=== PATIENT | female | born 1955 | race African-American/Black ===

== ENCOUNTER 2020-09-19 08:32 | Inpatient (IN) | payer MEDICAID ==
[~2020-09-19] VITALS: Ht 167.6 cm; Wt 116.1 kg
[~2020-09-19 08:32] MED LIST: ASPI-1406 PO; ATOR40TA70 PO; CA C1TAB92 PO; LISI40TA4 PO; METF-416 PO
[2020-09-19] MEDS ORDERED: PIPERACILLIN/TAZ 3.375G PREMIX 50 ML IV ONE (08:45)
[2020-09-19] MEDS ORDERED: VANCOMYCIN 1 G PREMIX 200 ML IV ONE (08:45)
[2020-09-19] MEDS ORDERED: AZITHROMYCIN 500 MG in DEXT 5% WATER 250 ML IV ONE (08:45)
[2020-09-19] MEDS ORDERED: MORPHINE SULFATE 4 MG/ML CPJ (NOT FOR IM USE) IV ONE (09:30)
[2020-09-19] MEDS ORDERED: FUROSEMIDE 100MG/10ML VIAL IVP ONE (09:30)
[2020-09-19 09:54] LABS: CHLORIDE 101 mEq/L (98-107)
[2020-09-19 09:56] LABS: BASOPHILS % 0.9 % (0.0-2.0); HEMATOCRIT. 44.3 % (36.0-48.0); HEMOGLOBIN. 14.5 g/dL (12.0-16.0); LYMPHOCYTES % 8.7 % (20.0-50.0); MEAN CORPUSCULAR HEMOGLOBIN 26.8 pg (28.0-32.0); MEAN CORPUSCULAR VOLUME 81.7 fL (81.0-99.0); MEAN PLATELET VOLUME 8.7 fl (7.4-10.4); MONOCYTES % 7.7 % (2.0-8.0); NEUTROPHILS % 82.7 % (40.0-76.0); PLATELET 178 x1000/uL (130-400); RED BLOOD CELL COUNT 5.43 mill/uL (4.2-5.4)
[2020-09-19] MEDS ORDERED: LORAZEPAM 2MG/ML CPJ IV ONE (10:15)
[2020-09-19] MEDS ORDERED: CLONIDINE 0.1MG TABLET PO PRN (10:30)
[2020-09-19] MEDS ORDERED: HYDROCODONE/ACETAMINOPHEN 5/325MG TABLET PO PRN (10:30)
[2020-09-19] MEDS ORDERED: LORAZEPAM 0.5MG TABLET PO PRN (10:30)
[2020-09-19] MEDS ORDERED: ACETAMINOPHEN 325MG TABLET PO PRN ×2 (10:30)
[2020-09-19] MEDS ORDERED: DOCUSATE SODIUM 100MG CAPSULE PO PRN (10:30)
[2020-09-19] MEDS: DEXAMETHASONE 10 MG/ML VIAL IV SCH (10:30)
[2020-09-19] MEDS ORDERED: ONDANSETRON HCL 4MG/2ML INJ IV PRN (10:30)
[2020-09-19] MEDS: ENOXAPARIN 40MG/0.4ML SYR SUBCUT SCH (11:00)
[2020-09-19 11:35] LABS: PHOSPHORUS 3.2 mg/dL (2.5-4.9)
[2020-09-19] MEDS: CEFEPIME 2,000 MG in DEXT 5% WATER 100 ML IV SCH (12:00)
[2020-09-19 12:20] LABS: BG BASE EXCESS 2.8 mmol/L (-2.0-2.0); BG CARBOXYHEMOGLOBIN 0.3 % (0.5-1.5); BG DEOXYHEMOGLOBIN 6.2 % (0.0-5.0); BG FRACTION INSPIRED OXYGEN 100; BG HCO3 ACT 26.2 mmol/L (22.0-26.0); BG METHEMOGLOBIN 0.1 % (0.0-1.5); BG OXYGEN SATURATION 93.8 % (92.0-98.5); BG OXYHEMOGLOBIN 93.4 % (94.0-97.0); BG PCO2 36.5 mmHg (35.0-45.0); BG PH 7.474 (7.350-7.450); BG SAMPLE SITE RIGHT BRACHIAL; BG TOTAL HEMOGLOBIN 14.9 g/dL (12.0-18.0); BG VENT MODE MASK - NRB
[2020-09-19] MEDS ORDERED: DEXTROSE 50% WATER 50ML SYRINGE IV PRN (13:45)
[2020-09-19] MEDS: BLOOD SUGAR DIAGNOSTIC STRIP TEST SCH ×2 (17:32→22:30)
[2020-09-19] MEDS: INSULIN LISPRO 100 UNITS/ML SUBCUT SCH ×2 (18:20→22:39)
[2020-09-20] MEDS: ERGOCALCIFEROL 50000UNITS CAPSULE PO SCH (00:19)
[2020-09-20 05:46] LABS: BASOPHILS % 0.3 % (0.0-2.0); HEMATOCRIT. 41.5 % (36.0-48.0); HEMOGLOBIN. 13.5 g/dL (12.0-16.0); MEAN CORPUSCULAR HEMOGLOBIN 26.6 pg (28.0-32.0); MEAN CORPUSCULAR VOLUME 81.9 fL (81.0-99.0); MEAN PLATELET VOLUME 8.3 fl (7.4-10.4); MONOCYTES % 10.4 % (2.0-8.0); NEUTROPHILS % 80.3 % (40.0-76.0); PLATELET 152 x1000/uL (130-400); RED BLOOD CELL COUNT 5.06 mill/uL (4.2-5.4); RED CELL DISTRIBUTION WIDTH 14.6 % (11.6-14.6)
[2020-09-20] MEDS: BLOOD SUGAR DIAGNOSTIC STRIP TEST SCH ×4 (06:49→22:09)
[2020-09-20] MEDS: INSULIN LISPRO 100 UNITS/ML SUBCUT SCH ×4 (07:00→22:09)
[2020-09-20] MEDS: ASPIRIN 81MG EC TABLET PO SCH (08:16)
[2020-09-20] MEDS: DEXAMETHASONE 10 MG/ML VIAL IV SCH (08:16)
[2020-09-20] MEDS: ASCORBIC ACID 500 MG TABLET PO SCH ×2 (08:17→22:09)
[2020-09-20] MEDS: ZINC SULFATE 220 MG ( 50 ) CAPSULE PO SCH (09:00)
[2020-09-20] MEDS: ENOXAPARIN 40MG/0.4ML SYR SUBCUT SCH (10:21)
[2020-09-20] MEDS: CEFEPIME 2,000 MG in DEXT 5% WATER 100 ML IV SCH (12:08)
[2020-09-20 13:24] LABS: BG BASE EXCESS 1.8 mmol/L (-2.0-2.0); BG CARBOXYHEMOGLOBIN 0.5 % (0.5-1.5); BG DEOXYHEMOGLOBIN 5.3 % (0.0-5.0); BG FRACTION INSPIRED OXYGEN 100; BG HCO3 ACT 25.9 mmol/L (22.0-26.0); BG METHEMOGLOBIN 0.2 % (0.0-1.5); BG OXYGEN SATURATION 94.7 % (92.0-98.5); BG PCO2 38.6 mmHg (35.0-45.0); BG PH 7.444 (7.350-7.450); BG PO2 74.7 mmHg (75.0-100.0); BG SAMPLE SITE RIGHT RADIAL; BG TOTAL HEMOGLOBIN 14.2 g/dL (12.0-18.0); BG TOTAL RESPIRATORY RATE 31 b/min; BG VENT MODE MASK - CPAP
[2020-09-20] MEDS: SODIUM CHLORIDE 0.9% 1,000 ML IV SCH (15:23)
[2020-09-20] MEDS: FAMOTIDINE 20MG TABLET PO SCH (22:09)
[2020-09-21] MEDS: SODIUM CHLORIDE 0.9% 1,000 ML IV SCH ×2 (05:12→18:00)
[2020-09-21 06:33] LABS: BASOPHILS % 0.3 % (0.0-2.0); HEMATOCRIT. 39.4 % (36.0-48.0); LYMPHOCYTES % 8.3 % (20.0-50.0); MEAN CORPUSCULAR VOLUME 82.2 fL (81.0-99.0); MEAN PLATELET VOLUME 9.1 fl (7.4-10.4); NEUTROPHILS % 81.4 % (40.0-76.0); PLATELET 145 x1000/uL (130-400); RED BLOOD CELL COUNT 4.79 mill/uL (4.2-5.4); RED CELL DISTRIBUTION WIDTH 14.3 % (11.6-14.6)
[2020-09-21] MEDS: BLOOD SUGAR DIAGNOSTIC STRIP TEST SCH ×4 (06:41→21:00)
[2020-09-21] MEDS: INSULIN LISPRO 100 UNITS/ML SUBCUT SCH ×4 (07:10→21:00)
[2020-09-21] MEDS: ASCORBIC ACID 500 MG TABLET PO SCH ×2 (08:03→21:21)
[2020-09-21] MEDS: ZINC SULFATE 220 MG ( 50 ) CAPSULE PO SCH (08:03)
[2020-09-21] MEDS: DEXAMETHASONE 10 MG/ML VIAL IV SCH (08:03)
[2020-09-21] MEDS: ASPIRIN 81MG EC TABLET PO SCH (08:03)
[2020-09-21 08:24] LABS: BG BASE EXCESS 0.9 mmol/L (-2.0-2.0); BG CARBOXYHEMOGLOBIN 0.4 % (0.5-1.5); BG DEOXYHEMOGLOBIN 6.6 % (0.0-5.0); BG HCO3 ACT 25.3 mmol/L (22.0-26.0); BG METHEMOGLOBIN 0.2 % (0.0-1.5); BG OXYGEN SATURATION 93.4 % (92.0-98.5); BG OXYHEMOGLOBIN 92.8 % (94.0-97.0); BG PCO2 39.8 mmHg (35.0-45.0); BG PH 7.421 (7.350-7.450); BG PO2 70.2 mmHg (75.0-100.0); BG SAMPLE SITE RIGHT RADIAL; BG TOTAL HEMOGLOBIN 13.6 g/dL (12.0-18.0); BG VENT MODE MASK - CPAP
[2020-09-21] MEDS: ENOXAPARIN 40MG/0.4ML SYR SUBCUT SCH (12:41)
[2020-09-21] MEDS: CEFEPIME 2,000 MG in DEXT 5% WATER 100 ML IV SCH (13:19)
[2020-09-21] MEDS: GUAIFENESIN-DM 200MG-20MG/10ML UDC PO PRN (18:22)
[2020-09-21] MEDS: FAMOTIDINE 20MG TABLET PO SCH (21:21)
[2020-09-22] MEDS: BLOOD SUGAR DIAGNOSTIC STRIP TEST SCH ×4 (06:39→21:00)
[2020-09-22] MEDS: INSULIN LISPRO 100 UNITS/ML SUBCUT SCH ×4 (07:13→21:00)
[2020-09-22] MEDS: SODIUM CHLORIDE 0.9% 1,000 ML IV SCH (07:15)
[2020-09-22] MEDS: ZINC SULFATE 220 MG ( 50 ) CAPSULE PO SCH (09:00)
[2020-09-22] MEDS: DEXAMETHASONE 10 MG/ML VIAL IV SCH (09:00)
[2020-09-22] MEDS: ASCORBIC ACID 500 MG TABLET PO SCH ×2 (09:00→20:44)
[2020-09-22] MEDS: ASPIRIN 81MG EC TABLET PO SCH (09:00)
[2020-09-22 09:02] LABS: BASOPHILS % 0.4 % (0.0-2.0); EOSINOPHILS % 0.5 % (0.0-5.0); HEMATOCRIT. 40.9 % (36.0-48.0); HEMOGLOBIN. 13.3 g/dL (12.0-16.0); LYMPHOCYTES % 7.1 % (20.0-50.0); MEAN CORPUSCULAR HEMOGLOBIN 26.7 pg (28.0-32.0); MEAN PLATELET VOLUME 8.7 fl (7.4-10.4); MONOCYTES % 3.4 % (2.0-8.0); NEUTROPHILS % 88.6 % (40.0-76.0); PLATELET 149 x1000/uL (130-400); RED BLOOD CELL COUNT 4.99 mill/uL (4.2-5.4); RED CELL DISTRIBUTION WIDTH 14.5 % (11.6-14.6)
[2020-09-22 09:26] LABS: CHLORIDE 108 mEq/L (98-107)
[2020-09-22] MEDS: ENOXAPARIN 40MG/0.4ML SYR SUBCUT SCH (11:00)
[2020-09-22] MEDS: CEFEPIME 2,000 MG in DEXT 5% WATER 100 ML IV SCH (12:00)
[2020-09-22 16:00] VITALS: BP 121/74
[2020-09-22 16:28] VITALS: BP 121/65
[2020-09-22 20:00] VITALS: BP 95/64
[2020-09-22] MEDS: FAMOTIDINE 20MG TABLET PO SCH (20:44)
[2020-09-23] VITALS: BP 134/68
[2020-09-23 04:00] VITALS: BP 137/76
[2020-09-23] MEDS: SODIUM CHLORIDE 0.9% 1,000 ML IV SCH ×2 (05:14→13:26)
[2020-09-23] MEDS: BLOOD SUGAR DIAGNOSTIC STRIP TEST SCH ×4 (06:40→21:29)
[2020-09-23 06:53] LABS: HEMATOCRIT. 41.1 % (36.0-48.0); HEMOGLOBIN. 13.3 g/dL (12.0-16.0); MEAN CORPUSCULAR HEMOGLOBIN 26.8 pg (28.0-32.0); MEAN CORPUSCULAR VOLUME 82.8 fL (81.0-99.0); MEAN PLATELET VOLUME 8.9 fl (7.4-10.4); PLATELET 117 x1000/uL (130-400); RED BLOOD CELL COUNT 4.96 mill/uL (4.2-5.4); RED CELL DISTRIBUTION WIDTH 14.5 % (11.6-14.6)
[2020-09-23 06:58] LABS: CHLORIDE 110 mEq/L (98-107)
[2020-09-23] MEDS: INSULIN LISPRO 100 UNITS/ML SUBCUT SCH ×5 (07:10→21:38)
[2020-09-23 08:00] VITALS: BP 135/81
[2020-09-23] MEDS: DEXAMETHASONE 10 MG/ML VIAL IV SCH (08:37)
[2020-09-23] MEDS: ZINC SULFATE 220 MG ( 50 ) CAPSULE PO SCH (09:17)
[2020-09-23] MEDS: ASCORBIC ACID 500 MG TABLET PO SCH ×2 (09:17→21:29)
[2020-09-23] MEDS: ASPIRIN 81MG EC TABLET PO SCH (09:17)
[2020-09-23] MEDS: ENOXAPARIN 40MG/0.4ML SYR SUBCUT SCH (11:35)
[2020-09-23 12:00] VITALS: BP 111/68
[2020-09-23] MEDS: CEFEPIME 2,000 MG in DEXT 5% WATER 100 ML IV SCH (14:35)
[2020-09-23 16:29] LABS: PLATELET ESTIMATE DECREASED
[2020-09-23 20:00] VITALS: BP 151/72
[2020-09-23] MEDS: FAMOTIDINE 20MG TABLET PO SCH (21:29)
[2020-09-24] VITALS: BP 149/80
[2020-09-24 04:00] VITALS: BP 145/70
[2020-09-24] MEDS: BLOOD SUGAR DIAGNOSTIC STRIP TEST SCH ×4 (05:58→20:32)
[2020-09-24 08:00] VITALS: BP 119/75
[2020-09-24] MEDS: ZINC SULFATE 220 MG ( 50 ) CAPSULE PO SCH (09:12)
[2020-09-24] MEDS: ASPIRIN 81MG EC TABLET PO SCH (09:12)
[2020-09-24] MEDS: INSULIN LISPRO 100 UNITS/ML SUBCUT SCH ×4 (09:13→20:33)
[2020-09-24] MEDS: DEXAMETHASONE 10 MG/ML VIAL IV SCH (09:47)
[2020-09-24] MEDS: ASCORBIC ACID 500 MG TABLET PO SCH ×2 (11:30→20:32)
[2020-09-24] MEDS: ENOXAPARIN 40MG/0.4ML SYR SUBCUT SCH (11:30)
[2020-09-24 12:00] VITALS: BP 157/74
[2020-09-24] MEDS: SODIUM CHLORIDE 0.9% 1,000 ML IV SCH ×2 (12:50)
[2020-09-24 13:29] LABS: MEAN CORPUSCULAR HEMOGLOBIN 26.7 pg (28.0-32.0); MEAN CORPUSCULAR VOLUME 82.1 fL (81.0-99.0); MEAN PLATELET VOLUME 8.9 fl (7.4-10.4); PLATELET 87 x1000/uL (130-400); RED BLOOD CELL COUNT 4.51 mill/uL (4.2-5.4); RED CELL DISTRIBUTION WIDTH 14.7 % (11.6-14.6)
[2020-09-24 13:44] LABS: CHLORIDE 113 mEq/L (98-107)
[2020-09-24 14:28] LABS: PLATELET ESTIMATE DECREASED
[2020-09-24 16:00] VITALS: BP 138/75
[2020-09-24] MEDS: BENZONATATE 100MG CAPSULE PO SCH ×2 (17:24→22:57)
[2020-09-24 20:00] VITALS: BP 159/83
[2020-09-24] MEDS: FAMOTIDINE 20MG TABLET PO SCH (20:32)
[2020-09-24] MEDS: ACETAMINOPHEN 650MG/20.3ML UDC PO PRN (23:46)
[2020-09-25] VITALS (68 sets, daily range): BP systolic 63–151; BP diastolic 28–96
[2020-09-25] MEDS: SODIUM CHLORIDE 0.9% 1,000 ML IV SCH ×2 (03:06→15:44)
[2020-09-25] MEDS: BENZONATATE 100MG CAPSULE PO SCH ×3 (05:59→22:00)
[2020-09-25] MEDS: BLOOD SUGAR DIAGNOSTIC STRIP TEST SCH ×3 (05:59→18:24)
[2020-09-25] MEDS: INSULIN LISPRO 100 UNITS/ML SUBCUT SCH ×3 (06:00→18:29)
[2020-09-25] MEDS: PROPOFOL 10MG/ML 100ML 100 ML IV PRN ×2 (07:15→09:41)
[2020-09-25] MEDS ORDERED: FENTANYL CITRATE/PF 2,500 MCG in SODIUM CHLORIDE 0.9% 200 ML IV PRN (07:30)
[2020-09-25] MEDS ORDERED: MIDAZOLAM HCL 100 MG in DEXT 5% WATER 80 ML IV PRN (07:30)
[2020-09-25 07:40] LABS: BASOPHILS % 0.5 % (0.0-2.0); EOSINOPHILS % 1.3 % (0.0-5.0); HEMATOCRIT. 39.1 % (36.0-48.0); HEMOGLOBIN. 12.7 g/dL (12.0-16.0); LYMPHOCYTES % 11.2 % (20.0-50.0); MEAN CORPUSCULAR VOLUME 83.4 fL (81.0-99.0); MEAN PLATELET VOLUME 8.8 fl (7.4-10.4); MONOCYTES % 1.5 % (2.0-8.0); NEUTROPHILS % 85.5 % (40.0-76.0); PLATELET 61 x1000/uL (130-400); RED BLOOD CELL COUNT 4.69 mill/uL (4.2-5.4); RED CELL DISTRIBUTION WIDTH 14.8 % (11.6-14.6)
[2020-09-25] MEDS: FENTANYL CITRATE/PF 2,500 MCG in SODIUM CHLORIDE 0.9% 200 ML IV PRN (08:02)
[2020-09-25 08:10] LABS: CHLORIDE 111 mEq/L (98-107)
[2020-09-25 08:28] LABS: BG BASE EXCESS -4.4 mmol/L (-2.0-2.0); BG CARBOXYHEMOGLOBIN 0.9 % (0.5-1.5); BG DEOXYHEMOGLOBIN 2.9 % (0.0-5.0); BG FRACTION INSPIRED OXYGEN 100; BG HCO3 ACT 21.9 mmol/L (22.0-26.0); BG METHEMOGLOBIN 0.3 % (0.0-1.5); BG OXYGEN SATURATION 97.1 % (92.0-98.5); BG OXYHEMOGLOBIN 95.9 % (94.0-97.0); BG PCO2 44.8 mmHg (35.0-45.0); BG PH 7.307 (7.350-7.450); BG SAMPLE SITE RIGHT RADIAL; BG TOTAL HEMOGLOBIN 13.8 g/dL (12.0-18.0); BG TOTAL RESPIRATORY RATE 30 b/min; BG VENT MODE VENT - AC
[2020-09-25] MEDS ORDERED: LIDOCAINE HCL 1% 20ML VIAL (Pyxis) INJ ONE (08:28)
[2020-09-25] MEDS: ZINC SULFATE 220 MG ( 50 ) CAPSULE PO SCH (09:00)
[2020-09-25] MEDS: ASPIRIN 81MG EC TABLET PO SCH (09:00)
[2020-09-25] MEDS: ASCORBIC ACID 500 MG TABLET PO SCH ×2 (09:00→20:10)
[2020-09-25] MEDS: DEXAMETHASONE 10 MG/ML VIAL IV SCH (09:00)
[2020-09-25] MEDS: PHENYLEPHRINE 100 MG in DEXT 5% WATER 240 ML IV PRN ×2 (09:11→18:06)
[2020-09-25] MEDS: MIDAZOLAM HCL 100 MG in DEXT 5% WATER 80 ML IV PRN ×2 (11:46→22:06)
[2020-09-25 13:32] LABS: BASOPHILS % 0.9 % (0.0-2.0); EOSINOPHILS % 0.8 % (0.0-5.0); HEMATOCRIT. 37.4 % (36.0-48.0); LYMPHOCYTES % 12.5 % (20.0-50.0); MEAN CORPUSCULAR HEMOGLOBIN 26.7 pg (28.0-32.0); MEAN CORPUSCULAR VOLUME 83.4 fL (81.0-99.0); MEAN PLATELET VOLUME 9.4 fl (7.4-10.4); MONOCYTES % 2.8 % (2.0-8.0); RED BLOOD CELL COUNT 4.49 mill/uL (4.2-5.4); RED CELL DISTRIBUTION WIDTH 15.1 % (11.6-14.6)
[2020-09-25 13:40] LABS: PLATELET 47 x1000/uL (130-400)
[2020-09-25 14:11] LABS: PLATELET ESTIMATE MARKEDLY DECREASED
[2020-09-25] MEDS ORDERED: INSULIN LISPRO 100 UNITS/ML SUBCUT SCH (18:00)
[2020-09-25] MEDS ORDERED: DEXTROSE 50% WATER 50ML SYRINGE IV PRN (18:15)
[2020-09-25] MEDS: FAMOTIDINE 20MG TABLET PO SCH (20:10)
[2020-09-26] VITALS (92 sets, daily range): BP systolic 109–154; BP diastolic 57–91
[2020-09-26] MEDS: BLOOD SUGAR DIAGNOSTIC STRIP TEST SCH ×5 (00:05→23:58)
[2020-09-26] MEDS: INSULIN LISPRO 100 UNITS/ML SUBCUT SCH ×5 (00:06→23:59)
[2020-09-26] MEDS: PHENYLEPHRINE 100 MG in DEXT 5% WATER 240 ML IV PRN ×2 (00:13→11:13)
[2020-09-26] MEDS: SODIUM CHLORIDE 0.9% 1,000 ML IV SCH ×2 (05:09→17:51)
[2020-09-26] MEDS: BENZONATATE 100MG CAPSULE PO SCH ×3 (05:09→22:00)
[2020-09-26 05:52] LABS: HEMATOCRIT. 36.6 % (36.0-48.0); HEMOGLOBIN. 11.7 g/dL (12.0-16.0); MEAN CORPUSCULAR VOLUME 84.6 fL (81.0-99.0); RED BLOOD CELL COUNT 4.32 mill/uL (4.2-5.4); RED CELL DISTRIBUTION WIDTH 15.2 % (11.6-14.6)
[2020-09-26] MEDS: FENTANYL CITRATE/PF 2,500 MCG in SODIUM CHLORIDE 0.9% 200 ML IV PRN (06:08)
[2020-09-26 06:28] LABS: PLATELET 36 x1000/uL (130-400)
[2020-09-26 08:48] LABS: BG BASE EXCESS -6.3 mmol/L (-2.0-2.0); BG CARBOXYHEMOGLOBIN 0.3 % (0.5-1.5); BG HCO3 ACT 21.5 mmol/L (22.0-26.0); BG METHEMOGLOBIN 0.3 % (0.0-1.5); BG OXYHEMOGLOBIN 98.4 % (94.0-97.0); BG PH 7.227 (7.350-7.450); BG PO2 216.4 mmHg (75.0-100.0); BG SAMPLE SITE RIGHT RADIAL; BG TOTAL HEMOGLOBIN 12.1 g/dL (12.0-18.0); BG VENT MODE VENT - AC
[2020-09-26] MEDS: ZINC SULFATE 220 MG ( 50 ) CAPSULE PO SCH (10:12)
[2020-09-26] MEDS: ERGOCALCIFEROL 50000UNITS CAPSULE PO SCH (10:12)
[2020-09-26] MEDS: ASCORBIC ACID 500 MG TABLET PO SCH ×2 (10:12→20:55)
[2020-09-26] MEDS: DEXAMETHASONE 10 MG/ML VIAL IV SCH (10:12)
[2020-09-26] MEDS ORDERED: SODIUM POLYSTYRENE SULFONATE 15 G/60 ML BOT PO SCH (12:00)
[2020-09-26 13:38] LABS: INR 1.5; PROTHROMBIN TIME 15.4 sec (9.6-11.0)
[2020-09-26] MEDS ORDERED: LIDOCAINE HCL 1% 20ML VIAL (Pyxis) INJ ONE (14:34)
[2020-09-26 14:51] LABS: NUCLEATED RED BLOOD CELLS 2 /100 WBC; PLATELET ESTIMATE MARKEDLY DECREASED
[2020-09-26] MEDS: GUAIFENESIN-DM 200MG-20MG/10ML UDC PO PRN (15:58)
[2020-09-26] MEDS: PANTOPRAZOLE SODIUM 40 MG/VIAL IV SCH (17:51)
[2020-09-26] MEDS: MIDAZOLAM HCL 100 MG in DEXT 5% WATER 80 ML IV PRN (20:27)
[2020-09-27] VITALS (96 sets, daily range): BP systolic 115–159; BP diastolic 54–85
[2020-09-27] MEDS: FENTANYL CITRATE/PF 2,500 MCG in SODIUM CHLORIDE 0.9% 200 ML IV PRN ×2 (01:25→19:00)
[2020-09-27 05:21] LABS: HEMATOCRIT. 32.6 % (36.0-48.0); HEMOGLOBIN. 10.4 g/dL (12.0-16.0); MEAN CORPUSCULAR HEMOGLOBIN 26.8 pg (28.0-32.0); MEAN CORPUSCULAR VOLUME 84.1 fL (81.0-99.0); MEAN PLATELET VOLUME 10.8 fl (7.4-10.4); RED BLOOD CELL COUNT 3.88 mill/uL (4.2-5.4); RED CELL DISTRIBUTION WIDTH 14.9 % (11.6-14.6)
[2020-09-27 05:34] LABS: CHLORIDE 115 mEq/L (98-107)
[2020-09-27 05:41] LABS: PHOSPHORUS 5.1 mg/dL (2.5-4.9)
[2020-09-27 05:42] LABS: INR 1.5; PROTHROMBIN TIME 15.6 sec (9.6-11.0)
[2020-09-27] MEDS: BLOOD SUGAR DIAGNOSTIC STRIP TEST SCH ×3 (05:45→18:46)
[2020-09-27] MEDS: BENZONATATE 100MG CAPSULE PO SCH ×2 (05:45→14:46)
[2020-09-27] MEDS: INSULIN LISPRO 100 UNITS/ML SUBCUT SCH ×3 (05:50→19:01)
[2020-09-27 06:10] LABS: PLATELET 27 x1000/uL (130-400)
[2020-09-27 09:27] LABS: PLATELET ESTIMATE MARKEDLY DECREASED
[2020-09-27] MEDS: PANTOPRAZOLE SODIUM 40 MG/VIAL IV SCH (10:29)
[2020-09-27] MEDS: DEXAMETHASONE 10 MG/ML VIAL IV SCH (10:29)
[2020-09-27] MEDS: ZINC SULFATE 220 MG ( 50 ) CAPSULE PO SCH (10:29)
[2020-09-27] MEDS: ASCORBIC ACID 500 MG TABLET PO SCH ×2 (10:29→21:37)
[2020-09-27] MEDS: SODIUM CHLORIDE 0.9% 1,000 ML IV SCH ×2 (10:44→20:35)
[2020-09-27 10:48] LABS: BG BASE EXCESS -5.3 mmol/L (-2.0-2.0); BG CARBOXYHEMOGLOBIN 0.3 % (0.5-1.5); BG DEOXYHEMOGLOBIN 1.1 % (0.0-5.0); BG FRACTION INSPIRED OXYGEN 100; BG HCO3 ACT 22.7 mmol/L (22.0-26.0); BG METHEMOGLOBIN 0.3 % (0.0-1.5); BG OXYGEN SATURATION 98.9 % (92.0-98.5); BG OXYHEMOGLOBIN 98.3 % (94.0-97.0); BG PCO2 56.4 mmHg (35.0-45.0); BG PH 7.222 (7.350-7.450); BG PO2 230.1 mmHg (75.0-100.0); BG SAMPLE SITE RIGHT RADIAL; BG TOTAL HEMOGLOBIN 11.1 g/dL (12.0-18.0); BG VENT MODE VENT - AC
[2020-09-27] MEDS ORDERED: DOPAMINE 400MG/250ML PREMIX 250 ML IV PRN (15:30)
[2020-09-27] MEDS: MIDAZOLAM HCL 100 MG in DEXT 5% WATER 80 ML IV PRN (17:13)
[2020-09-27] MEDS: METOCLOPRAMIDE HCL 10MG/2ML VIAL IV SCH (18:59)
[2020-09-28] VITALS (72 sets, daily range): BP systolic 105–182; BP diastolic 54–100
[2020-09-28] MEDS: BLOOD SUGAR DIAGNOSTIC STRIP TEST SCH ×4 (00:32→18:27)
[2020-09-28] MEDS: INSULIN LISPRO 100 UNITS/ML SUBCUT SCH ×4 (00:32→17:44)
[2020-09-28] MEDS: METOCLOPRAMIDE HCL 10MG/2ML VIAL IV SCH ×4 (00:32→17:43)
[2020-09-28] MEDS: FENTANYL CITRATE/PF 2,500 MCG in SODIUM CHLORIDE 0.9% 200 ML IV PRN (02:08)
[2020-09-28 05:35] LABS: HEMATOCRIT. 30.1 % (36.0-48.0); HEMOGLOBIN. 9.5 g/dL (12.0-16.0); MEAN CORPUSCULAR HEMOGLOBIN 26.7 pg (28.0-32.0); MEAN CORPUSCULAR VOLUME 84.4 fL (81.0-99.0); MEAN PLATELET VOLUME 9.2 fl (7.4-10.4); RED BLOOD CELL COUNT 3.57 mill/uL (4.2-5.4); RED CELL DISTRIBUTION WIDTH 15.1 % (11.6-14.6)
[2020-09-28 05:42] LABS: PLATELET 18 x1000/uL (130-400)
[2020-09-28 05:45] LABS: CHLORIDE 117 mEq/L (98-107)
[2020-09-28 05:48] LABS: PHOSPHORUS 3.3 mg/dL (2.5-4.9)
[2020-09-28 09:06] LABS: PLATELET ESTIMATE MARKEDLY DECREASED
[2020-09-28 09:16] LABS: BG CARBOXYHEMOGLOBIN 0.5 % (0.5-1.5); BG DEOXYHEMOGLOBIN 16.3 % (0.0-5.0); BG FRACTION INSPIRED OXYGEN 60; BG HCO3 ACT 22.8 mmol/L (22.0-26.0); BG METHEMOGLOBIN 0.3 % (0.0-1.5); BG OXYGEN SATURATION 83.6 % (92.0-98.5); BG OXYHEMOGLOBIN 82.9 % (94.0-97.0); BG PH 7.236 (7.350-7.450); BG PO2 55.4 mmHg (75.0-100.0); BG SAMPLE SITE RIGHT RADIAL; BG TOTAL HEMOGLOBIN 11.4 g/dL (12.0-18.0); BG VENT MODE VENT - AC
[2020-09-28] MEDS: ZINC SULFATE 220 MG ( 50 ) CAPSULE PO SCH (09:37)
[2020-09-28] MEDS: PANTOPRAZOLE SODIUM 40 MG/VIAL IV SCH (09:37)
[2020-09-28] MEDS: DEXAMETHASONE 10 MG/ML VIAL IV SCH (09:37)
[2020-09-28] MEDS: ASCORBIC ACID 500 MG TABLET PO SCH ×2 (09:37→21:50)
[2020-09-28] MEDS: SODIUM CHLORIDE 0.9% 1,000 ML IV SCH ×2 (09:38→21:51)
[2020-09-28 12:56] LABS: BG BASE EXCESS 0.1 mmol/L (-2.0-2.0); BG CARBOXYHEMOGLOBIN 0.5 % (0.5-1.5); BG DEOXYHEMOGLOBIN 8.1 % (0.0-5.0); BG FRACTION INSPIRED OXYGEN 60; BG HCO3 ACT 23.9 mmol/L (22.0-26.0); BG METHEMOGLOBIN 0.1 % (0.0-1.5); BG OXYGEN SATURATION 91.9 % (92.0-98.5); BG OXYHEMOGLOBIN 91.3 % (94.0-97.0); BG PCO2 35.5 mmHg (35.0-45.0); BG PH 7.446 (7.350-7.450); BG PO2 69.9 mmHg (75.0-100.0); BG SAMPLE SITE RIGHT BRACHIAL; BG TOTAL HEMOGLOBIN 10.5 g/dL (12.0-18.0); BG VENT MODE VENT - AC
[2020-09-28] MEDS: MIDAZOLAM 100MG/100ML PREMIX IV PRN (13:07)
[2020-09-29] VITALS (79 sets, daily range): BP systolic 95–164; BP diastolic 47–99
[2020-09-29] MEDS: FENTANYL CITRATE/PF 2,500 MCG in SODIUM CHLORIDE 0.9% 200 ML IV PRN (00:01)
[2020-09-29] MEDS: METOCLOPRAMIDE HCL 10MG/2ML VIAL IV SCH ×5 (00:49→23:39)
[2020-09-29] MEDS: BLOOD SUGAR DIAGNOSTIC STRIP TEST SCH ×4 (00:57→18:08)
[2020-09-29] MEDS: INSULIN LISPRO 100 UNITS/ML SUBCUT SCH ×6 (01:03→23:40)
[2020-09-29] MEDS: ASCORBIC ACID 500 MG TABLET PO SCH ×2 (08:57→22:11)
[2020-09-29] MEDS: ZINC SULFATE 220 MG ( 50 ) CAPSULE PO SCH (08:57)
[2020-09-29] MEDS: PANTOPRAZOLE SODIUM 40 MG/VIAL IV SCH (08:58)
[2020-09-29 09:22] LABS: BG BASE EXCESS -1.6 mmol/L (-2.0-2.0); BG CARBOXYHEMOGLOBIN 0.4 % (0.5-1.5); BG DEOXYHEMOGLOBIN 4.1 % (0.0-5.0); BG METHEMOGLOBIN 0.1 % (0.0-1.5); BG OXYGEN SATURATION 95.9 % (92.0-98.5); BG OXYHEMOGLOBIN 95.4 % (94.0-97.0); BG PCO2 33.2 mmHg (35.0-45.0); BG PO2 85.4 mmHg (75.0-100.0); BG SAMPLE SITE RIGHT RADIAL; BG TOTAL HEMOGLOBIN 10.4 g/dL (12.0-18.0); BG VENT MODE VENT - AC
[2020-09-29] MEDS: MIDAZOLAM 100MG/100ML PREMIX IV PRN (10:29)
[2020-09-29 10:53] LABS: HEMATOCRIT. 31.5 % (36.0-48.0); HEMOGLOBIN. 10.2 g/dL (12.0-16.0); MEAN CORPUSCULAR HEMOGLOBIN 26.7 pg (28.0-32.0); MEAN CORPUSCULAR VOLUME 82.2 fL (81.0-99.0); MEAN PLATELET VOLUME 7.7 fl (7.4-10.4); RED BLOOD CELL COUNT 3.83 mill/uL (4.2-5.4)
[2020-09-29 11:03] LABS: CHLORIDE 117 mEq/L (98-107)
[2020-09-29 11:11] LABS: PHOSPHORUS 2.9 mg/dL (2.5-4.9)
[2020-09-29 11:18] LABS: PLATELET 43 x1000/uL (130-400)
[2020-09-29 12:10] LABS: HAPTOGLOBIN 124 mg/dL (30-200)
[2020-09-29 13:00] LABS: NUCLEATED RED BLOOD CELLS 3 /100 WBC; PLATELET ESTIMATE MARKEDLY DECREASED
[2020-09-29 13:25] LABS: HEPATITIS B SURFACE ANTIGEN NEGATIVE
[2020-09-29 13:54] LABS: HEPATITIS A AB IGM NEGATIVE (NEGATIVE)
[2020-09-29] MEDS ORDERED: IPRATROPIUM/ALBUTEROL 0.5-3(2.5)MG/3ML NEB HHN PRN (20:15)
[2020-09-30] VITALS (97 sets, daily range): BP systolic 80–186; BP diastolic 43–94
[2020-09-30] MEDS: FENTANYL CITRATE/PF 2,500 MCG in SODIUM CHLORIDE 0.9% 200 ML IV PRN ×2 (02:42→13:30)
[2020-09-30] MEDS: MIDAZOLAM 100MG/100ML PREMIX IV PRN ×3 (05:17→23:39)
[2020-09-30] MEDS: BLOOD SUGAR DIAGNOSTIC STRIP TEST SCH ×5 (06:00→23:36)
[2020-09-30] MEDS: METOCLOPRAMIDE HCL 10MG/2ML VIAL IV SCH ×4 (06:05→23:36)
[2020-09-30] MEDS: INSULIN LISPRO 100 UNITS/ML SUBCUT SCH ×4 (07:20→23:38)
[2020-09-30 08:39] LABS: BG BASE EXCESS -1.5 mmol/L (-2.0-2.0); BG CARBOXYHEMOGLOBIN 0.3 % (0.5-1.5); BG DEOXYHEMOGLOBIN 6.2 % (0.0-5.0); BG FRACTION INSPIRED OXYGEN 100; BG HCO3 ACT 24.3 mmol/L (22.0-26.0); BG METHEMOGLOBIN 0.4 % (0.0-1.5); BG OXYGEN SATURATION 93.8 % (92.0-98.5); BG OXYHEMOGLOBIN 93.1 % (94.0-97.0); BG PCO2 45.6 mmHg (35.0-45.0); BG PH 7.345 (7.350-7.450); BG PO2 79.2 mmHg (75.0-100.0); BG SAMPLE SITE RIGHT RADIAL; BG TOTAL HEMOGLOBIN 11.1 g/dL (12.0-18.0); BG TOTAL RESPIRATORY RATE 38 b/min; BG VENT MODE VENT - AC
[2020-09-30] MEDS: PROPOFOL 10MG/ML 100ML 100 ML IV PRN ×3 (08:49→19:38)
[2020-09-30] MEDS: IPRATROPIUM/ALBUTEROL 0.5-3(2.5)MG/3ML NEB HHN SCH ×4 (08:59→23:28)
[2020-09-30] MEDS: PHENYLEPHRINE 100 MG in DEXT 5% WATER 240 ML IV PRN (09:09)
[2020-09-30 09:25] LABS: HEMATOCRIT. 31.1 % (36.0-48.0); MEAN CORPUSCULAR HEMOGLOBIN 26.5 pg (28.0-32.0); MEAN CORPUSCULAR VOLUME 82.6 fL (81.0-99.0); MEAN PLATELET VOLUME 8.4 fl (7.4-10.4); RED BLOOD CELL COUNT 3.76 mill/uL (4.2-5.4); RED CELL DISTRIBUTION WIDTH 15.1 % (11.6-14.6)
[2020-09-30 09:38] LABS: PLATELET 35 x1000/uL (130-400)
[2020-09-30 09:46] LABS: CHLORIDE 116 mEq/L (98-107)
[2020-09-30] MEDS: PANTOPRAZOLE SODIUM 40 MG/VIAL IV SCH (10:28)
[2020-09-30] MEDS: ZINC SULFATE 220 MG ( 50 ) CAPSULE PO SCH (10:28)
[2020-09-30] MEDS: ASCORBIC ACID 500 MG TABLET PO SCH ×2 (10:28→21:20)
[2020-09-30 11:41] LABS: NUCLEATED RED BLOOD CELLS 5 /100 WBC; PLATELET ESTIMATE MARKEDLY DECREASED
[2020-10-01] VITALS (96 sets, daily range): BP systolic 94–137; BP diastolic 44–104
[2020-10-01] MEDS: FENTANYL CITRATE/PF 2,500 MCG in SODIUM CHLORIDE 0.9% 200 ML IV PRN ×3 (01:49→21:22)
[2020-10-01] MEDS: PROPOFOL 10MG/ML 100ML 100 ML IV PRN (03:17)
[2020-10-01] MEDS: IPRATROPIUM/ALBUTEROL 0.5-3(2.5)MG/3ML NEB HHN SCH ×5 (03:39→21:45)
[2020-10-01 05:00] LABS: PHOSPHORUS 2.9 mg/dL (2.5-4.9)
[2020-10-01 05:03] LABS: HEMATOCRIT. 26.2 % (36.0-48.0); HEMOGLOBIN. 8.4 g/dL (12.0-16.0); MEAN CORPUSCULAR HEMOGLOBIN 26.5 pg (28.0-32.0); MEAN CORPUSCULAR VOLUME 82.8 fL (81.0-99.0); MEAN PLATELET VOLUME 9.6 fl (7.4-10.4); RED BLOOD CELL COUNT 3.16 mill/uL (4.2-5.4); RED CELL DISTRIBUTION WIDTH 15.2 % (11.6-14.6)
[2020-10-01] MEDS: BLOOD SUGAR DIAGNOSTIC STRIP TEST SCH ×3 (05:21→17:53)
[2020-10-01] MEDS: METOCLOPRAMIDE HCL 10MG/2ML VIAL IV SCH ×3 (05:21→17:52)
[2020-10-01] MEDS: INSULIN LISPRO 100 UNITS/ML SUBCUT SCH ×3 (05:23→17:52)
[2020-10-01 07:00] LABS: PLATELET 31 x1000/uL (130-400)
[2020-10-01 08:48] LABS: BG BASE EXCESS -2.5 mmol/L (-2.0-2.0); BG CARBOXYHEMOGLOBIN 0.3 % (0.5-1.5); BG DEOXYHEMOGLOBIN 3.3 % (0.0-5.0); BG HCO3 ACT 21.3 mmol/L (22.0-26.0); BG METHEMOGLOBIN 0.2 % (0.0-1.5); BG OXYGEN SATURATION 96.7 % (92.0-98.5); BG OXYHEMOGLOBIN 96.2 % (94.0-97.0); BG PCO2 32.6 mmHg (35.0-45.0); BG PH 7.433 (7.350-7.450); BG SAMPLE SITE RIGHT RADIAL; BG TOTAL HEMOGLOBIN 8.9 g/dL (12.0-18.0); BG VENT MODE VENT- PRVC
[2020-10-01] MEDS: ZINC SULFATE 220 MG ( 50 ) CAPSULE PO SCH (09:21)
[2020-10-01] MEDS: ASCORBIC ACID 500 MG TABLET PO SCH ×2 (09:21→20:50)
[2020-10-01] MEDS: PANTOPRAZOLE SODIUM 40 MG/VIAL IV SCH (09:22)
[2020-10-01] MEDS: MIDAZOLAM 100MG/100ML PREMIX IV PRN ×2 (10:11→20:30)
[2020-10-01 12:32] LABS: NUCLEATED RED BLOOD CELLS 1 /100 WBC; PLATELET ESTIMATE MARKEDLY DECREASED
[2020-10-01] MEDS ORDERED: NA PHOS,M-B/NA PHOS,DI-BA ENEMA 118ML PR NR (13:00)
[2020-10-01] MEDS ORDERED: LACTULOSE 20G/30ML UDC PO NR (13:00)
[2020-10-01] MEDS: PHENYLEPHRINE 100 MG in DEXT 5% WATER 240 ML IV PRN (22:15)
[2020-10-02] VITALS (96 sets, daily range): BP systolic 85–150; BP diastolic 20–107
[2020-10-02] MEDS: BLOOD SUGAR DIAGNOSTIC STRIP TEST SCH ×5 (00:24→23:46)
[2020-10-02] MEDS: INSULIN LISPRO 100 UNITS/ML SUBCUT SCH ×5 (00:25→23:46)
[2020-10-02] MEDS: METOCLOPRAMIDE HCL 10MG/2ML VIAL IV SCH ×5 (00:25→23:45)
[2020-10-02] MEDS: IPRATROPIUM/ALBUTEROL 0.5-3(2.5)MG/3ML NEB HHN SCH ×3 (04:14→14:01)
[2020-10-02 05:40] LABS: CHLORIDE 117 mEq/L (98-107)
[2020-10-02 05:42] LABS: HEMATOCRIT. 26.6 % (36.0-48.0); HEMOGLOBIN. 8.5 g/dL (12.0-16.0); MEAN CORPUSCULAR HEMOGLOBIN 26.6 pg (28.0-32.0); MEAN CORPUSCULAR VOLUME 83.6 fL (81.0-99.0); MEAN PLATELET VOLUME 10.4 fl (7.4-10.4); RED BLOOD CELL COUNT 3.19 mill/uL (4.2-5.4); RED CELL DISTRIBUTION WIDTH 15.3 % (11.6-14.6)
[2020-10-02 05:46] LABS: PHOSPHORUS 4.3 mg/dL (2.5-4.9)
[2020-10-02 06:07] LABS: PLATELET 32 x1000/uL (130-400)
[2020-10-02] MEDS: FENTANYL CITRATE/PF 2,500 MCG in SODIUM CHLORIDE 0.9% 200 ML IV PRN ×2 (08:30→21:17)
[2020-10-02] MEDS: ASCORBIC ACID 500 MG TABLET PO SCH ×2 (09:48→20:40)
[2020-10-02] MEDS: ZINC SULFATE 220 MG ( 50 ) CAPSULE PO SCH (09:48)
[2020-10-02] MEDS: PANTOPRAZOLE SODIUM 40 MG/VIAL IV SCH (09:48)
[2020-10-02] MEDS: SODIUM CHLORIDE 0.9% 1,000 ML IV SCH (09:49)
[2020-10-02 11:46] LABS: BG BASE EXCESS 0.1 mmol/L (-2.0-2.0); BG CARBOXYHEMOGLOBIN 0.8 % (0.5-1.5); BG DEOXYHEMOGLOBIN 1.3 % (0.0-5.0); BG FRACTION INSPIRED OXYGEN 70; BG HCO3 ACT 23.9 mmol/L (22.0-26.0); BG METHEMOGLOBIN 0.2 % (0.0-1.5); BG OXYGEN SATURATION 98.7 % (92.0-98.5); BG OXYHEMOGLOBIN 97.7 % (94.0-97.0); BG PCO2 35.4 mmHg (35.0-45.0); BG PH 7.447 (7.350-7.450); BG PO2 150.3 mmHg (75.0-100.0); BG SAMPLE SITE RIGHT RADIAL; BG TOTAL HEMOGLOBIN 9.2 g/dL (12.0-18.0); BG TOTAL RESPIRATORY RATE 38 b/min; BG VENT MODE PRVC
[2020-10-02] MEDS: DEXTROSE 5% WATER 1,000 ML IV SCH (14:06)
[2020-10-02] MEDS: INSULIN GLARGINE UD 100 UNITS/ML SYR SUBCUT SCH (14:07)
[2020-10-02 15:39] LABS: PLATELET ESTIMATE MARKEDLY DECREASED
[2020-10-02] MEDS ORDERED: SODIUM CHLORIDE 0.45% 250 ML IV ONE (17:30)
[2020-10-02] MEDS ORDERED: SODIUM CHLORIDE 0.45% 1,000 ML IV SCH (17:45)
[2020-10-02] MEDS: MIDAZOLAM 100MG/100ML PREMIX IV PRN ×2 (17:46→23:46)
[2020-10-03] VITALS (101 sets, daily range): BP systolic 68–129; BP diastolic 31–103
[2020-10-03] MEDS: FENTANYL CITRATE/PF 2,500 MCG in SODIUM CHLORIDE 0.9% 200 ML IV PRN ×3 (04:38→20:07)
[2020-10-03 04:58] LABS: CHLORIDE 115 mEq/L (98-107)
[2020-10-03 05:01] LABS: HEMATOCRIT. 23.6 % (36.0-48.0); HEMOGLOBIN. 7.5 g/dL (12.0-16.0); MEAN CORPUSCULAR HEMOGLOBIN 26.3 pg (28.0-32.0); MEAN CORPUSCULAR VOLUME 83.1 fL (81.0-99.0); MEAN PLATELET VOLUME 9.5 fl (7.4-10.4); RED BLOOD CELL COUNT 2.84 mill/uL (4.2-5.4); RED CELL DISTRIBUTION WIDTH 15.2 % (11.6-14.6)
[2020-10-03 05:06] LABS: PHOSPHORUS 3.1 mg/dL (2.5-4.9)
[2020-10-03] MEDS: METOCLOPRAMIDE HCL 10MG/2ML VIAL IV SCH ×4 (05:46→23:57)
[2020-10-03] MEDS: BLOOD SUGAR DIAGNOSTIC STRIP TEST SCH ×3 (05:52→17:28)
[2020-10-03] MEDS: INSULIN LISPRO 100 UNITS/ML SUBCUT SCH ×3 (05:53→17:28)
[2020-10-03 06:12] LABS: PLATELET 21 x1000/uL (130-400)
[2020-10-03] MEDS: IPRATROPIUM/ALBUTEROL 0.5-3(2.5)MG/3ML NEB HHN SCH ×2 (08:17→20:57)
[2020-10-03] MEDS: PANTOPRAZOLE SODIUM 40 MG/VIAL IV SCH ×2 (09:15→17:49)
[2020-10-03] MEDS: ZINC SULFATE 220 MG ( 50 ) CAPSULE PO SCH (09:15)
[2020-10-03] MEDS: ERGOCALCIFEROL 50000UNITS CAPSULE PO SCH (09:15)
[2020-10-03] MEDS: ASCORBIC ACID 500 MG TABLET PO SCH ×2 (09:15→20:20)
[2020-10-03] MEDS: INSULIN GLARGINE UD 100 UNITS/ML SYR SUBCUT SCH (09:16)
[2020-10-03] MEDS: MIDAZOLAM 100MG/100ML PREMIX IV PRN ×2 (09:35→20:13)
[2020-10-03 10:43] LABS: BG BASE EXCESS -1.8 mmol/L (-2.0-2.0); BG CARBOXYHEMOGLOBIN 1.6 % (0.5-1.5); BG FRACTION INSPIRED OXYGEN 70; BG HCO3 ACT 23.5 mmol/L (22.0-26.0); BG OXYGEN SATURATION 88.8 % (92.0-98.5); BG OXYHEMOGLOBIN 87.4 % (94.0-97.0); BG PCO2 42.6 mmHg (35.0-45.0); BG PO2 61.2 mmHg (75.0-100.0); BG SAMPLE SITE RIGHT RADIAL; BG TOTAL HEMOGLOBIN 9.4 g/dL (12.0-18.0); BG VENT MODE VENT - PRVC
[2020-10-03 11:13] LABS: PLATELET ESTIMATE MARKEDLY DECREASED
[2020-10-03] MEDS: DEXTROSE 5% WATER 1,000 ML IV SCH (12:48)
[2020-10-03 15:01] LABS: VITAMIN B12 SERUM > 2000.0 pg/mL (211-911)
[2020-10-03] MEDS: ACETAMINOPHEN 650MG/20.3ML UDC PO PRN (17:49)
[2020-10-03] MEDS: PHENYLEPHRINE 100 MG in DEXT 5% WATER 240 ML IV PRN (20:07)
[2020-10-04] VITALS (45 sets, daily range): BP systolic 95–140; BP diastolic 37–78
[2020-10-04] MEDS: INSULIN LISPRO 100 UNITS/ML SUBCUT SCH ×4 (00:19→18:30)
[2020-10-04] MEDS: BLOOD SUGAR DIAGNOSTIC STRIP TEST SCH ×4 (00:19→18:51)
[2020-10-04] MEDS: IPRATROPIUM/ALBUTEROL 0.5-3(2.5)MG/3ML NEB HHN SCH ×4 (03:29→22:18)
[2020-10-04] MEDS: METOCLOPRAMIDE HCL 10MG/2ML VIAL IV SCH ×3 (05:01→18:00)
[2020-10-04] MEDS: MIDAZOLAM 100MG/100ML PREMIX IV PRN ×3 (05:02→18:23)
[2020-10-04] MEDS: FENTANYL CITRATE/PF 2,500 MCG in SODIUM CHLORIDE 0.9% 200 ML IV PRN ×3 (05:02→18:22)
[2020-10-04 05:52] LABS: BASOPHILS % 0.3 % (0.0-2.0); EOSINOPHILS % 1.1 % (0.0-5.0); HEMATOCRIT. 27.9 % (36.0-48.0); HEMOGLOBIN. 8.9 g/dL (12.0-16.0); LYMPHOCYTES % 7.5 % (20.0-50.0); MEAN CORPUSCULAR HEMOGLOBIN 26.9 pg (28.0-32.0); MEAN CORPUSCULAR VOLUME 83.9 fL (81.0-99.0); MEAN PLATELET VOLUME 10.8 fl (7.4-10.4); MONOCYTES % 4.1 % (2.0-8.0); RED BLOOD CELL COUNT 3.32 mill/uL (4.2-5.4); RED CELL DISTRIBUTION WIDTH 15.3 % (11.6-14.6)
[2020-10-04 06:43] LABS: PLATELET 28 x1000/uL (130-400)
[2020-10-04] MEDS ORDERED: KCL 20MEQ/100ML PREMIX 100 ML IV SCH (10:00)
[2020-10-04 10:16] LABS: BG BASE EXCESS -1.6 mmol/L (-2.0-2.0); BG CARBOXYHEMOGLOBIN 1.7 % (0.5-1.5); BG DEOXYHEMOGLOBIN 9.9 % (0.0-5.0); BG FRACTION INSPIRED OXYGEN 60; BG METHEMOGLOBIN 0.3 % (0.0-1.5); BG OXYGEN SATURATION 89.9 % (92.0-98.5); BG OXYHEMOGLOBIN 88.1 % (94.0-97.0); BG PCO2 44.3 mmHg (35.0-45.0); BG PH 7.351 (7.350-7.450); BG PO2 61.2 mmHg (75.0-100.0); BG SAMPLE SITE LEFT BRACHIAL; BG TOTAL HEMOGLOBIN 9.8 g/dL (12.0-18.0); BG TOTAL RESPIRATORY RATE 38 b/min; BG VENT MODE VENT- PRVC
[2020-10-04] MEDS: ZINC SULFATE 220 MG ( 50 ) CAPSULE PO SCH (10:19)
[2020-10-04] MEDS: ASCORBIC ACID 500 MG TABLET PO SCH (10:19)
[2020-10-04] MEDS: PANTOPRAZOLE SODIUM 40 MG/VIAL IV SCH ×2 (10:20→18:52)
[2020-10-04] MEDS: INSULIN GLARGINE UD 100 UNITS/ML SYR SUBCUT SCH (10:22)
[2020-10-04 11:07] LABS: PHOSPHORUS 2.7 mg/dL (2.5-4.9)
[2020-10-04] MEDS: DEXTROSE 5% WATER 1,000 ML IV SCH (12:30)
[2020-10-04] MEDS ORDERED: PROPOFOL 10MG/ML 100ML 100 ML IV PRN (16:45)
[2020-10-05] VITALS (85 sets, daily range): BP systolic 68–156; BP diastolic 23–95
[2020-10-05] MEDS: ASCORBIC ACID 500 MG TABLET PO SCH ×3 (00:18→21:59)
[2020-10-05] MEDS: METOCLOPRAMIDE HCL 10MG/2ML VIAL IV SCH ×4 (00:18→18:23)
[2020-10-05] MEDS: BLOOD SUGAR DIAGNOSTIC STRIP TEST SCH ×4 (00:19→18:23)
[2020-10-05] MEDS: INSULIN LISPRO 100 UNITS/ML SUBCUT SCH ×4 (00:19→18:25)
[2020-10-05] MEDS: GUAIFENESIN-DM 200MG-20MG/10ML UDC PO PRN (00:20)
[2020-10-05] MEDS: MIDAZOLAM HCL 100 MG in DEXT 5% WATER 100 ML IV PRN ×2 (01:38→09:45)
[2020-10-05] MEDS: IPRATROPIUM/ALBUTEROL 0.5-3(2.5)MG/3ML NEB HHN SCH ×5 (01:59→21:43)
[2020-10-05] MEDS: FENTANYL CITRATE/PF 2,500 MCG in SODIUM CHLORIDE 0.9% 200 ML IV PRN ×3 (02:01→17:51)
[2020-10-05] MEDS: ACETAMINOPHEN 650MG/20.3ML UDC PO PRN (02:36)
[2020-10-05 07:28] LABS: CHLORIDE 111 mEq/L (98-107)
[2020-10-05 07:59] LABS: HEMATOCRIT. 29.7 % (36.0-48.0); HEMOGLOBIN. 9.4 g/dL (12.0-16.0); MEAN CORPUSCULAR VOLUME 84.9 fL (81.0-99.0); MEAN PLATELET VOLUME 9.9 fl (7.4-10.4); RED CELL DISTRIBUTION WIDTH 15.6 % (11.6-14.6)
[2020-10-05 08:40] LABS: PLATELET 41 x1000/uL (130-400)
[2020-10-05 09:43] LABS: BG BASE EXCESS -3.5 mmol/L (-2.0-2.0); BG CARBOXYHEMOGLOBIN 1.6 % (0.5-1.5); BG DEOXYHEMOGLOBIN 8.8 % (0.0-5.0); BG HCO3 ACT 22.1 mmol/L (22.0-26.0); BG OXYGEN SATURATION 91.1 % (92.0-98.5); BG OXYHEMOGLOBIN 89.6 % (94.0-97.0); BG PCO2 42.2 mmHg (35.0-45.0); BG PH 7.337 (7.350-7.450); BG PO2 66.2 mmHg (75.0-100.0); BG SAMPLE SITE LEFT BRACHIAL; BG TOTAL HEMOGLOBIN 9.8 g/dL (12.0-18.0)
[2020-10-05] MEDS: ZINC SULFATE 220 MG ( 50 ) CAPSULE PO SCH (09:45)
[2020-10-05] MEDS: PANTOPRAZOLE SODIUM 40 MG/VIAL IV SCH ×2 (09:45→18:23)
[2020-10-05 09:46] LABS: BG FRACTION INSPIRED OXYGEN 75; BG VENT MODE VENT- PRVC; BG VENT RATE 38 set
[2020-10-05] MEDS: INSULIN GLARGINE UD 100 UNITS/ML SYR SUBCUT SCH (09:46)
[2020-10-05 09:47] LABS: BG TOTAL RESPIRATORY RATE 38 b/min
[2020-10-05] MEDS: PHENYLEPHRINE 100 MG in DEXT 5% WATER 240 ML IV PRN (10:03)
[2020-10-05 10:12] LABS: C REACTIVE PROTEIN QUANT > 190.0 mg/L (0.0-3.0)
[2020-10-05 12:21] LABS: NUCLEATED RED BLOOD CELLS 3 /100 WBC; PLATELET ESTIMATE MARKEDLY DECREASED
[2020-10-05] MEDS: DEXTROSE 5% WATER 1,000 ML IV SCH (13:18)
[2020-10-05 20:15] LABS: HEMATOCRIT. 29.3 % (36.0-48.0); HEMOGLOBIN. 9.2 g/dL (12.0-16.0); MEAN CORPUSCULAR HEMOGLOBIN 26.6 pg (28.0-32.0); MEAN CORPUSCULAR VOLUME 84.6 fL (81.0-99.0); MEAN PLATELET VOLUME 10.2 fl (7.4-10.4); RED BLOOD CELL COUNT 3.46 mill/uL (4.2-5.4); RED CELL DISTRIBUTION WIDTH 15.4 % (11.6-14.6)
[2020-10-05 20:17] LABS: CHLORIDE 110 mEq/L (98-107)
[2020-10-05 20:24] LABS: PHOSPHORUS 3.5 mg/dL (2.5-4.9); PLATELET 35 x1000/uL (130-400)
[2020-10-05 20:35] LABS: NUCLEATED RED BLOOD CELLS 4 /100 WBC
[2020-10-05 20:36] LABS: PLATELET ESTIMATE MARKEDLY DECREASED
[2020-10-05] MEDS: MIDAZOLAM 100MG/100ML PREMIX IV PRN (22:03)
[2020-10-06] VITALS (99 sets, daily range): BP systolic 44–147; BP diastolic 29–99
[2020-10-06] MEDS: BLOOD SUGAR DIAGNOSTIC STRIP TEST SCH ×4 (00:21→16:41)
[2020-10-06] MEDS: METOCLOPRAMIDE HCL 10MG/2ML VIAL IV SCH ×4 (00:23→16:56)
[2020-10-06] MEDS: INSULIN LISPRO 100 UNITS/ML SUBCUT SCH ×4 (00:38→16:57)
[2020-10-06] MEDS: PHENYLEPHRINE 100 MG in DEXT 5% WATER 240 ML IV PRN (02:23)
[2020-10-06] MEDS: FENTANYL CITRATE/PF 2,500 MCG in SODIUM CHLORIDE 0.9% 200 ML IV PRN ×2 (03:07→17:08)
[2020-10-06] MEDS: PROPOFOL 10MG/ML 100ML 100 ML IV PRN ×2 (03:34→08:43)
[2020-10-06 05:40] LABS: HEMOGLOBIN. 8.6 g/dL (12.0-16.0); MEAN CORPUSCULAR HEMOGLOBIN 26.9 pg (28.0-32.0); MEAN CORPUSCULAR VOLUME 84.8 fL (81.0-99.0); MEAN PLATELET VOLUME 10.4 fl (7.4-10.4); RED BLOOD CELL COUNT 3.19 mill/uL (4.2-5.4); RED CELL DISTRIBUTION WIDTH 15.7 % (11.6-14.6)
[2020-10-06 05:47] LABS: CHLORIDE 108 mEq/L (98-107)
[2020-10-06 06:06] LABS: PLATELET 31 x1000/uL (130-400)
[2020-10-06] MEDS: MIDAZOLAM 100MG/100ML PREMIX IV PRN (06:40)
[2020-10-06] MEDS: PANTOPRAZOLE SODIUM 40 MG/VIAL IV SCH ×2 (08:43→16:56)
[2020-10-06] MEDS: ASCORBIC ACID 500 MG TABLET PO SCH ×2 (08:43→21:32)
[2020-10-06] MEDS: ZINC SULFATE 220 MG ( 50 ) CAPSULE PO SCH (08:43)
[2020-10-06] MEDS: INSULIN GLARGINE UD 100 UNITS/ML SYR SUBCUT SCH (09:13)
[2020-10-06] MEDS: IPRATROPIUM/ALBUTEROL 0.5-3(2.5)MG/3ML NEB HHN SCH ×3 (09:32→20:38)
[2020-10-06 11:30] LABS: BG BASE EXCESS -5.2 mmol/L (-2.0-2.0); BG CARBOXYHEMOGLOBIN 1.4 % (0.5-1.5); BG DEOXYHEMOGLOBIN 2.3 % (0.0-5.0); BG FRACTION INSPIRED OXYGEN 80; BG HCO3 ACT 21.3 mmol/L (22.0-26.0); BG METHEMOGLOBIN 0.3 % (0.0-1.5); BG OXYGEN SATURATION 97.7 % (92.0-98.5); BG PCO2 47.4 mmHg (35.0-45.0); BG PH 7.271 (7.350-7.450); BG PO2 121.5 mmHg (75.0-100.0); BG SAMPLE SITE LEFT RADIAL; BG TOTAL HEMOGLOBIN 6.7 g/dL (12.0-18.0); BG VENT MODE VENT-PRVC
[2020-10-06] MEDS: DEXTROSE 5% WATER 1,000 ML IV SCH (12:11)
[2020-10-06 12:35] LABS: BG BASE EXCESS -4.1 mmol/L (-2.0-2.0); BG CARBOXYHEMOGLOBIN 1.1 % (0.5-1.5); BG DEOXYHEMOGLOBIN 8.2 % (0.0-5.0); BG FRACTION INSPIRED OXYGEN 100; BG HCO3 ACT 22.9 mmol/L (22.0-26.0); BG METHEMOGLOBIN 0.1 % (0.0-1.5); BG OXYGEN SATURATION 91.7 % (92.0-98.5); BG OXYHEMOGLOBIN 90.6 % (94.0-97.0); BG PCO2 51.3 mmHg (35.0-45.0); BG PH 7.268 (7.350-7.450); BG PO2 72.5 mmHg (75.0-100.0); BG SAMPLE SITE RIGHT RADIAL; BG TOTAL HEMOGLOBIN 9.5 g/dL (12.0-18.0); BG VENT MODE VENT-AC/PC
[2020-10-06 17:41] LABS: NUCLEATED RED BLOOD CELLS 2 /100 WBC; PLATELET ESTIMATE MARKEDLY DECREASED
[2020-10-07] VITALS (97 sets, daily range): BP systolic 80–135; BP diastolic 42–78
[2020-10-07] MEDS: BLOOD SUGAR DIAGNOSTIC STRIP TEST SCH ×4 (00:27→17:30)
[2020-10-07] MEDS: METOCLOPRAMIDE HCL 10MG/2ML VIAL IV SCH ×4 (00:48→17:29)
[2020-10-07] MEDS: INSULIN LISPRO 100 UNITS/ML SUBCUT SCH ×4 (00:48→18:30)
[2020-10-07] MEDS: IPRATROPIUM/ALBUTEROL 0.5-3(2.5)MG/3ML NEB HHN SCH ×5 (01:01→21:01)
[2020-10-07] MEDS: ACETAMINOPHEN 650MG/20.3ML UDC PO PRN ×2 (01:30→17:29)
[2020-10-07] MEDS ORDERED: PROPOFOL 10MG/ML 100ML 100 ML IV PRN (03:00)
[2020-10-07] MEDS: PROPOFOL 10MG/ML 100ML 100 ML IV PRN (03:37)
[2020-10-07] MEDS: DEXTROSE 5% WATER 1,000 ML IV SCH (06:15)
[2020-10-07 07:58] LABS: BASOPHILS % 0.6 % (0.0-2.0); EOSINOPHILS % 0.8 % (0.0-5.0); HEMOGLOBIN. 8.3 g/dL (12.0-16.0); LYMPHOCYTES % 8.8 % (20.0-50.0); MEAN CORPUSCULAR VOLUME 84.4 fL (81.0-99.0); MEAN PLATELET VOLUME 8.6 fl (7.4-10.4); MONOCYTES % 5.3 % (2.0-8.0); NEUTROPHILS % 84.5 % (40.0-76.0); RED BLOOD CELL COUNT 3.08 mill/uL (4.2-5.4); RED CELL DISTRIBUTION WIDTH 15.7 % (11.6-14.6)
[2020-10-07 08:05] LABS: CHLORIDE 106 mEq/L (98-107)
[2020-10-07 08:20] LABS: PHOSPHORUS 3.6 mg/dL (2.5-4.9)
[2020-10-07] MEDS: PANTOPRAZOLE SODIUM 40 MG/VIAL IV SCH ×2 (09:00→17:29)
[2020-10-07] MEDS: ZINC SULFATE 220 MG ( 50 ) CAPSULE PO SCH (09:00)
[2020-10-07] MEDS: ASCORBIC ACID 500 MG TABLET PO SCH ×2 (09:00→21:51)
[2020-10-07] MEDS: INSULIN GLARGINE UD 100 UNITS/ML SYR SUBCUT SCH (10:00)
[2020-10-07 13:49] LABS: BG BASE EXCESS -6.5 mmol/L (-2.0-2.0); BG CARBOXYHEMOGLOBIN 0.9 % (0.5-1.5); BG FRACTION INSPIRED OXYGEN 95; BG HCO3 ACT 21.6 mmol/L (22.0-26.0); BG METHEMOGLOBIN 0.2 % (0.0-1.5); BG OXYHEMOGLOBIN 96.9 % (94.0-97.0); BG PCO2 56.3 mmHg (35.0-45.0); BG PH 7.202 (7.350-7.450); BG PO2 128.5 mmHg (75.0-100.0); BG SAMPLE SITE RIGHT RADIAL; BG TOTAL HEMOGLOBIN 9.8 g/dL (12.0-18.0); BG VENT MODE VENT - P/C
[2020-10-07] MEDS ORDERED: LEVETIRACETAM 500 MG in SODIUM CHLORIDE 0.9% 100 ML IV SCH (20:30)
[2020-10-07 21:38] LABS: T4 FREE 0.87 ng/dL (0.76-1.46)
[2020-10-07 22:11] LABS: VITAMIN B12 SERUM > 2000.0 pg/mL (211-911)
[2020-10-07] MEDS: LEVETIRACETAM 500MG PREMIX 100 ML IV SCH (22:14)
[2020-10-08] VITALS (72 sets, daily range): BP systolic 118–159; BP diastolic 60–80
[2020-10-08] MEDS: INSULIN LISPRO 100 UNITS/ML SUBCUT SCH ×4 (00:30→18:24)
[2020-10-08] MEDS: METOCLOPRAMIDE HCL 10MG/2ML VIAL IV SCH ×4 (00:53→18:23)
[2020-10-08] MEDS: BLOOD SUGAR DIAGNOSTIC STRIP TEST SCH ×4 (00:53→18:17)
[2020-10-08] MEDS: IPRATROPIUM/ALBUTEROL 0.5-3(2.5)MG/3ML NEB HHN SCH ×4 (02:44→21:56)
[2020-10-08 05:49] LABS: CHLORIDE 102 mEq/L (98-107)
[2020-10-08 06:17] LABS: INR 1.3; PROTHROMBIN TIME 13.7 sec (9.6-11.0)
[2020-10-08] MEDS: PANTOPRAZOLE SODIUM 40 MG/VIAL IV SCH ×2 (08:55→18:23)
[2020-10-08] MEDS: ASCORBIC ACID 500 MG TABLET PO SCH ×2 (08:55→21:47)
[2020-10-08] MEDS: ZINC SULFATE 220 MG ( 50 ) CAPSULE PO SCH (08:55)
[2020-10-08] MEDS: LEVETIRACETAM 500MG PREMIX 100 ML IV SCH ×2 (08:56→21:47)
[2020-10-08 09:11] LABS: HEMATOCRIT. 23.1 % (36.0-48.0); HEMOGLOBIN. 7.4 g/dL (12.0-16.0); MEAN CORPUSCULAR HEMOGLOBIN 27.5 pg (28.0-32.0); MEAN CORPUSCULAR VOLUME 85.3 fL (81.0-99.0); MEAN PLATELET VOLUME 10.6 fl (7.4-10.4); RED CELL DISTRIBUTION WIDTH 15.6 % (11.6-14.6)
[2020-10-08 09:25] LABS: PLATELET 23 x1000/uL (130-400)
[2020-10-08 09:49] LABS: BG BASE EXCESS -0.8 mmol/L (-2.0-2.0); BG CARBOXYHEMOGLOBIN 1.2 % (0.5-1.5); BG DEOXYHEMOGLOBIN 0.7 % (0.0-5.0); BG FRACTION INSPIRED OXYGEN 100; BG HCO3 ACT 24.7 mmol/L (22.0-26.0); BG METHEMOGLOBIN 0.2 % (0.0-1.5); BG OXYGEN SATURATION 99.3 % (92.0-98.5); BG OXYHEMOGLOBIN 97.9 % (94.0-97.0); BG PCO2 45.1 mmHg (35.0-45.0); BG PH 7.357 (7.350-7.450); BG PO2 169.1 mmHg (75.0-100.0); BG SAMPLE SITE RIGHT RADIAL; BG TOTAL HEMOGLOBIN 7.8 g/dL (12.0-18.0); BG VENT MODE VENT - P/C
[2020-10-08 10:15] LABS: NUCLEATED RED BLOOD CELLS 4 /100 WBC; PLATELET ESTIMATE MARKEDLY DECREASED
[2020-10-08] MEDS: INSULIN GLARGINE UD 100 UNITS/ML SYR SUBCUT SCH (11:07)
[2020-10-08 13:37] LABS: PLATELET 22 x1000/uL (130-400)
[2020-10-08] MEDS: FENTANYL CITRATE/PF 2,500 MCG in SODIUM CHLORIDE 0.9% 200 ML IV PRN (13:59)
[2020-10-08] MEDS: DEXTROSE 5% WATER 1,000 ML IV SCH (14:36)
[2020-10-09] VITALS (89 sets, daily range): BP systolic 87–153; BP diastolic 50–87
[2020-10-09] MEDS: IPRATROPIUM/ALBUTEROL 0.5-3(2.5)MG/3ML NEB HHN SCH ×6 (00:15→20:39)
[2020-10-09] MEDS: METOCLOPRAMIDE HCL 10MG/2ML VIAL IV SCH ×5 (02:06→22:17)
[2020-10-09] MEDS: INSULIN LISPRO 100 UNITS/ML SUBCUT SCH ×4 (02:20→17:31)
[2020-10-09] MEDS: BLOOD SUGAR DIAGNOSTIC STRIP TEST SCH ×3 (06:00→17:17)
[2020-10-09 06:07] LABS: CHLORIDE 103 mEq/L (98-107)
[2020-10-09 06:11] LABS: BASOPHILS % 0.6 % (0.0-2.0); EOSINOPHILS % 1.7 % (0.0-5.0); HEMATOCRIT. 27.9 % (36.0-48.0); HEMOGLOBIN. 8.9 g/dL (12.0-16.0); LYMPHOCYTES % 8.6 % (20.0-50.0); MEAN CORPUSCULAR HEMOGLOBIN 27.5 pg (28.0-32.0); MEAN PLATELET VOLUME 8.7 fl (7.4-10.4); MONOCYTES % 8.2 % (2.0-8.0); NEUTROPHILS % 80.9 % (40.0-76.0); RED BLOOD CELL COUNT 3.24 mill/uL (4.2-5.4); RED CELL DISTRIBUTION WIDTH 15.4 % (11.6-14.6)
[2020-10-09 06:15] LABS: PHOSPHORUS 2.3 mg/dL (2.5-4.9)
[2020-10-09 06:56] LABS: PLATELET 41 x1000/uL (130-400)
[2020-10-09] MEDS: PANTOPRAZOLE SODIUM 40 MG/VIAL IV SCH ×2 (08:54→17:26)
[2020-10-09] MEDS: ACETAMINOPHEN 650MG/20.3ML UDC PO PRN (08:54)
[2020-10-09] MEDS: ASCORBIC ACID 500 MG TABLET PO SCH ×2 (08:55→22:17)
[2020-10-09] MEDS: ZINC SULFATE 220 MG ( 50 ) CAPSULE PO SCH (08:55)
[2020-10-09] MEDS: DEXT 5%/0.45% NACL 1000ML 1,000 ML IV SCH (08:56)
[2020-10-09] MEDS ORDERED: POTASSIUM PHOS,M-BASIC-D-BASIC 15 MMOL in DEXT 5% WATER 245 ML IV NR (09:00)
[2020-10-09] MEDS: LEVETIRACETAM 500MG PREMIX 100 ML IV SCH ×2 (09:25→22:17)
[2020-10-09] MEDS: INSULIN GLARGINE UD 100 UNITS/ML SYR SUBCUT SCH (09:27)
[2020-10-09] MEDS ORDERED: LACTULOSE 20G/30ML UDC PO SCH (09:30)
[2020-10-09 09:56] LABS: BG BASE EXCESS -1.4 mmol/L (-2.0-2.0); BG CARBOXYHEMOGLOBIN 0.6 % (0.5-1.5); BG DEOXYHEMOGLOBIN 5.9 % (0.0-5.0); BG FRACTION INSPIRED OXYGEN 85; BG HCO3 ACT 24.5 mmol/L (22.0-26.0); BG METHEMOGLOBIN 0.3 % (0.0-1.5); BG OXYHEMOGLOBIN 93.2 % (94.0-97.0); BG PCO2 46.1 mmHg (35.0-45.0); BG PH 7.343 (7.350-7.450); BG PO2 73.6 mmHg (75.0-100.0); BG SAMPLE SITE RIGHT RADIAL; BG TOTAL HEMOGLOBIN 10.1 g/dL (12.0-18.0); BG TOTAL RESPIRATORY RATE 40 b/min; BG VENT MODE VENT - P/C
[2020-10-09] MEDS: FENTANYL CITRATE/PF 2,500 MCG in SODIUM CHLORIDE 0.9% 200 ML IV PRN ×2 (14:16→23:35)
[2020-10-09] MEDS: LACTULOSE 20G/30ML UDC PO SCH (17:27)
[2020-10-10] VITALS (87 sets, daily range): BP systolic 84–148; BP diastolic 51–72
[2020-10-10] MEDS: BLOOD SUGAR DIAGNOSTIC STRIP TEST SCH ×5 (00:13→23:02)
[2020-10-10] MEDS: IPRATROPIUM/ALBUTEROL 0.5-3(2.5)MG/3ML NEB HHN SCH ×6 (00:23→20:40)
[2020-10-10] MEDS: INSULIN LISPRO 100 UNITS/ML SUBCUT SCH ×5 (00:30→23:07)
[2020-10-10] MEDS: ACETAMINOPHEN 650MG/20.3ML UDC PO PRN ×2 (05:19→15:01)
[2020-10-10] MEDS: METOCLOPRAMIDE HCL 10MG/2ML VIAL IV SCH ×4 (05:19→23:07)
[2020-10-10 05:49] LABS: BASOPHILS % 0.9 % (0.0-2.0); EOSINOPHILS % 1.9 % (0.0-5.0); HEMATOCRIT. 26.8 % (36.0-48.0); HEMOGLOBIN. 8.4 g/dL (12.0-16.0); LYMPHOCYTES % 7.1 % (20.0-50.0); MEAN CORPUSCULAR HEMOGLOBIN 27.7 pg (28.0-32.0); MEAN CORPUSCULAR VOLUME 88.2 fL (81.0-99.0); MEAN PLATELET VOLUME 9.8 fl (7.4-10.4); MONOCYTES % 6.9 % (2.0-8.0); NEUTROPHILS % 83.2 % (40.0-76.0); RED BLOOD CELL COUNT 3.03 mill/uL (4.2-5.4); RED CELL DISTRIBUTION WIDTH 16.1 % (11.6-14.6)
[2020-10-10] MEDS: MIDAZOLAM 100MG/100ML PMX 100 ML IV PRN (05:53)
[2020-10-10 05:58] LABS: CHLORIDE 104 mEq/L (98-107)
[2020-10-10 06:04] LABS: PHOSPHORUS 4.8 mg/dL (2.5-4.9)
[2020-10-10] MEDS: FENTANYL CITRATE/PF 2,500 MCG in SODIUM CHLORIDE 0.9% 200 ML IV PRN ×3 (06:40→23:38)
[2020-10-10 07:00] LABS: PLATELET 34 x1000/uL (130-400)
[2020-10-10] MEDS: ASCORBIC ACID 500 MG TABLET PO SCH ×2 (08:48→21:04)
[2020-10-10] MEDS: ERGOCALCIFEROL 50000UNITS CAPSULE PO SCH (08:48)
[2020-10-10] MEDS: PANTOPRAZOLE SODIUM 40 MG/VIAL IV SCH ×2 (08:48→16:59)
[2020-10-10] MEDS: ZINC SULFATE 220 MG ( 50 ) CAPSULE PO SCH (08:48)
[2020-10-10] MEDS: LACTULOSE 20G/30ML UDC PO SCH ×2 (08:48→16:59)
[2020-10-10] MEDS: DEXT 5%/0.45% NACL 1000ML 1,000 ML IV SCH (08:49)
[2020-10-10 08:54] LABS: BG BASE EXCESS -4.7 mmol/L (-2.0-2.0); BG DEOXYHEMOGLOBIN 7.4 % (0.0-5.0); BG HCO3 ACT 23.1 mmol/L (22.0-26.0); BG METHEMOGLOBIN 0.1 % (0.0-1.5); BG OXYGEN SATURATION 92.4 % (92.0-98.5); BG OXYHEMOGLOBIN 90.5 % (94.0-97.0); BG PCO2 57.4 mmHg (35.0-45.0); BG PH 7.223 (7.350-7.450); BG PO2 69.2 mmHg (75.0-100.0); BG SAMPLE SITE RIGHT RADIAL; BG TOTAL HEMOGLOBIN 9.4 g/dL (12.0-18.0); BG VENT MODE VENT - P/C
[2020-10-10] MEDS: INSULIN GLARGINE UD 100 UNITS/ML SYR SUBCUT SCH (09:26)
[2020-10-10] MEDS: LEVETIRACETAM 500MG PREMIX 100 ML IV SCH ×2 (09:54→21:04)
[2020-10-10] MEDS ORDERED: SODIUM BICARBONATE 8.4% 1 MEQ/ML 50ML SYR IV NR (13:00)
[2020-10-10] MEDS ORDERED: MAGNESIUM 2 G PREMIX 50 ML IV SCH (15:00)
[2020-10-10] MEDS: PHENYLEPHRINE 100 MG in DEXT 5% WATER 240 ML IV PRN (16:32)
[2020-10-10] MEDS: PETROLATUM,WHITE OPHTH OINT 3.5GM BOTHEYE SCH (21:04)
[2020-10-11] VITALS (91 sets, daily range): BP systolic 78–139; BP diastolic 41–77
[2020-10-11] MEDS: IPRATROPIUM/ALBUTEROL 0.5-3(2.5)MG/3ML NEB HHN SCH ×3 (03:15→21:03)
[2020-10-11] MEDS: INSULIN LISPRO 100 UNITS/ML SUBCUT SCH ×3 (05:34→18:18)
[2020-10-11] MEDS: METOCLOPRAMIDE HCL 10MG/2ML VIAL IV SCH ×4 (05:34→23:43)
[2020-10-11] MEDS: BLOOD SUGAR DIAGNOSTIC STRIP TEST SCH ×3 (05:34→18:14)
[2020-10-11 05:54] LABS: BASOPHILS % 0.5 % (0.0-2.0); HEMOGLOBIN. 7.9 g/dL (12.0-16.0); LYMPHOCYTES % 7.4 % (20.0-50.0); MEAN CORPUSCULAR HEMOGLOBIN 27.6 pg (28.0-32.0); MEAN CORPUSCULAR VOLUME 87.5 fL (81.0-99.0); MEAN PLATELET VOLUME 10.7 fl (7.4-10.4); MONOCYTES % 10.1 % (2.0-8.0); RED BLOOD CELL COUNT 2.85 mill/uL (4.2-5.4)
[2020-10-11] MEDS: DEXT 5%/0.45% NACL 1000ML 1,000 ML IV SCH (06:05)
[2020-10-11 06:51] LABS: CHLORIDE 103 mEq/L (98-107)
[2020-10-11 06:56] LABS: PLATELET 34 x1000/uL (130-400)
[2020-10-11 07:00] LABS: PHOSPHORUS 5.7 mg/dL (2.5-4.9)
[2020-10-11] MEDS: FENTANYL CITRATE/PF 2,500 MCG in SODIUM CHLORIDE 0.9% 200 ML IV PRN ×2 (08:57→18:19)
[2020-10-11] MEDS: MIDAZOLAM 100MG/100ML PMX 100 ML IV PRN (08:58)
[2020-10-11] MEDS: LACTULOSE 20G/30ML UDC PO SCH ×2 (09:19→18:18)
[2020-10-11] MEDS: ZINC SULFATE 220 MG ( 50 ) CAPSULE PO SCH (09:19)
[2020-10-11] MEDS: LEVETIRACETAM 500MG PREMIX 100 ML IV SCH ×2 (09:19→21:17)
[2020-10-11] MEDS: ASCORBIC ACID 500 MG TABLET PO SCH ×2 (09:19→20:22)
[2020-10-11] MEDS: PANTOPRAZOLE SODIUM 40 MG/VIAL IV SCH ×2 (09:19→18:18)
[2020-10-11] MEDS: INSULIN GLARGINE UD 100 UNITS/ML SYR SUBCUT SCH (09:20)
[2020-10-11] MEDS: PETROLATUM,WHITE OPHTH OINT 3.5GM BOTHEYE SCH ×2 (09:20→20:19)
[2020-10-11 09:54] LABS: BG BASE EXCESS -0.8 mmol/L (-2.0-2.0); BG CARBOXYHEMOGLOBIN 1.2 % (0.5-1.5); BG DEOXYHEMOGLOBIN 3.3 % (0.0-5.0); BG FRACTION INSPIRED OXYGEN 85; BG HCO3 ACT 26.4 mmol/L (22.0-26.0); BG METHEMOGLOBIN 0.1 % (0.0-1.5); BG OXYGEN SATURATION 96.7 % (92.0-98.5); BG OXYHEMOGLOBIN 95.4 % (94.0-97.0); BG PCO2 56.8 mmHg (35.0-45.0); BG PH 7.285 (7.350-7.450); BG PO2 101.7 mmHg (75.0-100.0); BG SAMPLE SITE RIGHT RADIAL; BG TOTAL HEMOGLOBIN 9.7 g/dL (12.0-18.0); BG VENT MODE VENT - P/C
[2020-10-11] MEDS ORDERED: SODIUM POLYSTYRENE SULFONATE 15 G/60 ML BOT NG SCH (14:00)
[2020-10-11 22:02] LABS: HEMATOCRIT 24.1 % (36.0-48.0); HEMOGLOBIN 7.6 g/dL (12.0-16.0)
[2020-10-11 22:13] LABS: PROTHROMBIN TIME 20.7 sec (9.6-11.0)
[2020-10-12] VITALS (95 sets, daily range): BP systolic 31–139; BP diastolic 13–85
[2020-10-12] MEDS: INSULIN LISPRO 100 UNITS/ML SUBCUT SCH ×4 (00:16→18:16)
[2020-10-12] MEDS: PHENYLEPHRINE 100 MG in DEXT 5% WATER 240 ML IV PRN ×2 (00:47→21:29)
[2020-10-12] MEDS: IPRATROPIUM/ALBUTEROL 0.5-3(2.5)MG/3ML NEB HHN SCH ×4 (03:58→19:55)
[2020-10-12] MEDS: FENTANYL CITRATE/PF 2,500 MCG in SODIUM CHLORIDE 0.9% 200 ML IV PRN ×2 (05:07→19:33)
[2020-10-12] MEDS: BLOOD SUGAR DIAGNOSTIC STRIP TEST SCH ×4 (06:00→18:15)
[2020-10-12] MEDS: METOCLOPRAMIDE HCL 10MG/2ML VIAL IV SCH ×4 (06:19→23:58)
[2020-10-12] MEDS: PETROLATUM,WHITE OPHTH OINT 3.5GM BOTHEYE SCH ×2 (08:30→20:20)
[2020-10-12] MEDS: LACTULOSE 20G/30ML UDC PO SCH ×2 (08:30→18:15)
[2020-10-12] MEDS: PANTOPRAZOLE SODIUM 40 MG/VIAL IV SCH ×2 (08:30→18:14)
[2020-10-12] MEDS: ZINC SULFATE 220 MG ( 50 ) CAPSULE PO SCH (08:30)
[2020-10-12] MEDS: DEXT 5%/0.45% NACL 1000ML 1,000 ML IV SCH (08:30)
[2020-10-12] MEDS: LEVETIRACETAM 500MG PREMIX 100 ML IV SCH ×2 (08:31→21:29)
[2020-10-12] MEDS: ASCORBIC ACID 500 MG TABLET PO SCH ×2 (08:31→20:20)
[2020-10-12 08:43] LABS: BG BASE EXCESS -4.7 mmol/L (-2.0-2.0); BG DEOXYHEMOGLOBIN 7.4 % (0.0-5.0); BG HCO3 ACT 21.6 mmol/L (22.0-26.0); BG METHEMOGLOBIN 0.3 % (0.0-1.5); BG OXYGEN SATURATION 92.4 % (92.0-98.5); BG OXYHEMOGLOBIN 90.3 % (94.0-97.0); BG PCO2 46.2 mmHg (35.0-45.0); BG PH 7.288 (7.350-7.450); BG PO2 72.2 mmHg (75.0-100.0); BG SAMPLE SITE RIGHT RADIAL; BG TOTAL HEMOGLOBIN 7.3 g/dL (12.0-18.0); BG VENT MODE VENT - P/C
[2020-10-12] MEDS: MIDAZOLAM 100MG/100ML PMX 100 ML IV PRN (09:07)
[2020-10-12] MEDS: INSULIN GLARGINE UD 100 UNITS/ML SYR SUBCUT SCH (09:37)
[2020-10-12] MEDS ORDERED: SODIUM POLYSTYRENE SULFONATE 15 G/60 ML BOT NG SCH (14:00)
[2020-10-12] MEDS: METHYLPREDNISOLONE SOD SUCC 40 MG/ML VIAL IV SCH (18:15)
[2020-10-12] MEDS: FUROSEMIDE 40MG/4ML VIAL IVP SCH (20:20)
[2020-10-13] VITALS (100 sets, daily range): BP systolic 86–144; BP diastolic 40–83
[2020-10-13] MEDS: IPRATROPIUM/ALBUTEROL 0.5-3(2.5)MG/3ML NEB HHN SCH ×6 (00:08→22:02)
[2020-10-13] MEDS: METHYLPREDNISOLONE SOD SUCC 40 MG/ML VIAL IV SCH ×3 (01:12→17:31)
[2020-10-13] MEDS: INSULIN LISPRO 100 UNITS/ML SUBCUT SCH ×4 (01:14→18:02)
[2020-10-13] MEDS: FENTANYL CITRATE/PF 2,500 MCG in SODIUM CHLORIDE 0.9% 200 ML IV PRN ×2 (03:07→16:26)
[2020-10-13 05:40] LABS: HEMATOCRIT. 24.1 % (36.0-48.0); HEMOGLOBIN. 7.4 g/dL (12.0-16.0); MEAN CORPUSCULAR HEMOGLOBIN 27.7 pg (28.0-32.0); MEAN CORPUSCULAR VOLUME 89.8 fL (81.0-99.0); MEAN PLATELET VOLUME 10.2 fl (7.4-10.4); RED BLOOD CELL COUNT 2.69 mill/uL (4.2-5.4); RED CELL DISTRIBUTION WIDTH 17.6 % (11.6-14.6)
[2020-10-13 05:46] LABS: INR 1.8; PROTHROMBIN TIME 18.6 sec (9.6-11.0)
[2020-10-13 05:50] LABS: CHLORIDE 99 mEq/L (98-107)
[2020-10-13 06:15] LABS: PHOSPHORUS 8.6 mg/dL (2.5-4.9)
[2020-10-13 06:22] LABS: PLATELET 34 x1000/uL (130-400)
[2020-10-13] MEDS: METOCLOPRAMIDE HCL 10MG/2ML VIAL IV SCH ×3 (06:53→17:31)
[2020-10-13] MEDS: PANTOPRAZOLE SODIUM 40 MG/VIAL IV SCH ×2 (08:36→17:30)
[2020-10-13] MEDS: ASCORBIC ACID 500 MG TABLET PO SCH ×2 (08:36→20:55)
[2020-10-13] MEDS: LACTULOSE 20G/30ML UDC PO SCH ×2 (08:36→17:30)
[2020-10-13] MEDS: ZINC SULFATE 220 MG ( 50 ) CAPSULE PO SCH (08:36)
[2020-10-13] MEDS: FUROSEMIDE 40MG/4ML VIAL IVP SCH ×2 (08:36→20:55)
[2020-10-13] MEDS: DEXT 5%/0.45% NACL 1000ML 1,000 ML IV SCH (08:37)
[2020-10-13] MEDS: PHENYLEPHRINE 100 MG in DEXT 5% WATER 240 ML IV PRN ×2 (08:38→23:00)
[2020-10-13] MEDS: PETROLATUM,WHITE OPHTH OINT 3.5GM BOTHEYE SCH ×2 (08:39→20:57)
[2020-10-13] MEDS: LEVETIRACETAM 500MG PREMIX 100 ML IV SCH ×2 (08:39→21:42)
[2020-10-13 09:20] LABS: BG BASE EXCESS -6.5 mmol/L (-2.0-2.0); BG CARBOXYHEMOGLOBIN 1.8 % (0.5-1.5); BG DEOXYHEMOGLOBIN 8.7 % (0.0-5.0); BG FRACTION INSPIRED OXYGEN 100; BG HCO3 ACT 21.7 mmol/L (22.0-26.0); BG METHEMOGLOBIN 0.3 % (0.0-1.5); BG OXYGEN SATURATION 91.1 % (92.0-98.5); BG OXYHEMOGLOBIN 89.2 % (94.0-97.0); BG PCO2 58.7 mmHg (35.0-45.0); BG PH 7.185 (7.350-7.450); BG SAMPLE SITE RIGHT RADIAL; BG TOTAL HEMOGLOBIN 8.3 g/dL (12.0-18.0); BG TOTAL RESPIRATORY RATE 44 b/min; BG VENT MODE VENT - P/C
[2020-10-13 11:03] LABS: NUCLEATED RED BLOOD CELLS 40 /100 WBC
[2020-10-13 11:04] LABS: PLATELET ESTIMATE MARKEDLY DECREASED
[2020-10-13] MEDS: INSULIN GLARGINE UD 100 UNITS/ML SYR SUBCUT SCH (11:22)
[2020-10-13] MEDS: BLOOD SUGAR DIAGNOSTIC STRIP TEST SCH ×3 (12:17→17:31)
[2020-10-13] MEDS ORDERED: SODIUM POLYSTYRENE SULFONATE 15 G/60 ML BOT PO NR (13:00)
[2020-10-13 13:03] LABS: BG BASE EXCESS -6.4 mmol/L (-2.0-2.0); BG CARBOXYHEMOGLOBIN 0.6 % (0.5-1.5); BG DEOXYHEMOGLOBIN 9.5 % (0.0-5.0); BG FRACTION INSPIRED OXYGEN 100; BG HCO3 ACT 21.5 mmol/L (22.0-26.0); BG METHEMOGLOBIN 0.3 % (0.0-1.5); BG OXYGEN SATURATION 90.4 % (92.0-98.5); BG OXYHEMOGLOBIN 89.6 % (94.0-97.0); BG PH 7.209 (7.350-7.450); BG PO2 71.8 mmHg (75.0-100.0); BG SAMPLE SITE RIGHT RADIAL; BG VENT MODE VENT - P/C
[2020-10-13] MEDS: MIDAZOLAM 100MG/100ML PMX 100 ML IV PRN (21:16)
[2020-10-14] VITALS (101 sets, daily range): BP systolic 92–138; BP diastolic 46–85
[2020-10-14] MEDS: METOCLOPRAMIDE HCL 10MG/2ML VIAL IV SCH ×5 (00:30→23:45)
[2020-10-14] MEDS: BLOOD SUGAR DIAGNOSTIC STRIP TEST SCH ×5 (00:30→23:58)
[2020-10-14] MEDS: INSULIN LISPRO 100 UNITS/ML SUBCUT SCH ×3 (00:31→11:52)
[2020-10-14] MEDS: METHYLPREDNISOLONE SOD SUCC 40 MG/ML VIAL IV SCH ×3 (02:16→17:41)
[2020-10-14] MEDS: IPRATROPIUM/ALBUTEROL 0.5-3(2.5)MG/3ML NEB HHN SCH ×5 (03:47→20:59)
[2020-10-14] MEDS: FENTANYL CITRATE/PF 2,500 MCG in SODIUM CHLORIDE 0.9% 200 ML IV PRN ×3 (05:16→21:33)
[2020-10-14 06:04] LABS: CHLORIDE 103 mEq/L (98-107)
[2020-10-14 06:05] LABS: HEMATOCRIT. 21.8 % (36.0-48.0); MEAN CORPUSCULAR HEMOGLOBIN 27.4 pg (28.0-32.0); MEAN CORPUSCULAR VOLUME 87.5 fL (81.0-99.0); RED BLOOD CELL COUNT 2.49 mill/uL (4.2-5.4); RED CELL DISTRIBUTION WIDTH 16.8 % (11.6-14.6)
[2020-10-14] MEDS ORDERED: MIDAZOLAM HCL 100 MG in SODIUM CHLORIDE 0.9% 100 ML IV PRN (07:00)
[2020-10-14 07:22] LABS: HEMOGLOBIN. 6.8 g/dL (12.0-16.0)
[2020-10-14 07:23] LABS: PLATELET 24 x1000/uL (130-400)
[2020-10-14] MEDS: PETROLATUM,WHITE OPHTH OINT 3.5GM BOTHEYE SCH ×2 (08:06→21:27)
[2020-10-14] MEDS: ZINC SULFATE 220 MG ( 50 ) CAPSULE PO SCH (08:06)
[2020-10-14] MEDS: FOLIC ACID/VITAMIN B COMP W-C TABLET PO SCH (08:07)
[2020-10-14] MEDS: PANTOPRAZOLE SODIUM 40 MG/VIAL IV SCH ×2 (08:07→17:41)
[2020-10-14] MEDS: FUROSEMIDE 40MG/4ML VIAL IVP SCH ×2 (08:07→21:28)
[2020-10-14] MEDS: LACTULOSE 20G/30ML UDC PO SCH ×2 (08:07→17:41)
[2020-10-14] MEDS: ASCORBIC ACID 500 MG TABLET PO SCH ×2 (08:07→21:28)
[2020-10-14] MEDS: DEXT 5%/0.45% NACL 1000ML 1,000 ML IV SCH (08:07)
[2020-10-14 09:45] LABS: BG BASE EXCESS 0.4 mmol/L (-2.0-2.0); BG CARBOXYHEMOGLOBIN 1.3 % (0.5-1.5); BG DEOXYHEMOGLOBIN 7.3 % (0.0-5.0); BG FRACTION INSPIRED OXYGEN 100; BG HCO3 ACT 27.3 mmol/L (22.0-26.0); BG METHEMOGLOBIN 0.3 % (0.0-1.5); BG OXYGEN SATURATION 92.6 % (92.0-98.5); BG OXYHEMOGLOBIN 91.1 % (94.0-97.0); BG PCO2 58.8 mmHg (35.0-45.0); BG PH 7.285 (7.350-7.450); BG PO2 76.1 mmHg (75.0-100.0); BG SAMPLE SITE RIGHT RADIAL; BG TOTAL HEMOGLOBIN 7.1 g/dL (12.0-18.0); BG TOTAL RESPIRATORY RATE 43 b/min; BG VENT MODE VENT - P/C
[2020-10-14 10:44] LABS: NUCLEATED RED BLOOD CELLS 48 /100 WBC; PLATELET ESTIMATE MARKEDLY DECREASED
[2020-10-14] MEDS: PHENYLEPHRINE 100 MG in DEXT 5% WATER 240 ML IV PRN ×2 (11:40→21:29)
[2020-10-14] MEDS: LEVETIRACETAM 500MG PREMIX 100 ML IV SCH ×2 (11:43→21:34)
[2020-10-14] MEDS: INSULIN GLARGINE UD 100 UNITS/ML SYR SUBCUT SCH (11:44)
[2020-10-14] MEDS: ACETAMINOPHEN 650MG/20.3ML UDC PO PRN ×2 (11:51→12:51)
[2020-10-14] MEDS: CEFEPIME 1,000 MG in DEXTROSE 5% WATER 50 ML IV SCH (17:41)
[2020-10-14 18:26] LABS: PHOSPHORUS 5.9 mg/dL (2.5-4.9)
[2020-10-14] MEDS: MIDAZOLAM 100MG/100ML PMX 100 ML IV PRN (23:41)
[2020-10-15] VITALS (99 sets, daily range): BP systolic 89–129; BP diastolic 25–89
[2020-10-15] MEDS: INSULIN LISPRO 100 UNITS/ML SUBCUT SCH ×5 (00:08→23:35)
[2020-10-15] MEDS: METHYLPREDNISOLONE SOD SUCC 40 MG/ML VIAL IV SCH ×3 (02:18→17:55)
[2020-10-15] MEDS: IPRATROPIUM/ALBUTEROL 0.5-3(2.5)MG/3ML NEB HHN SCH ×5 (02:41→20:07)
[2020-10-15] MEDS: FENTANYL CITRATE/PF 2,500 MCG in SODIUM CHLORIDE 0.9% 200 ML IV PRN ×3 (06:10→20:40)
[2020-10-15] MEDS: METOCLOPRAMIDE HCL 10MG/2ML VIAL IV SCH ×4 (06:23→23:35)
[2020-10-15] MEDS: BLOOD SUGAR DIAGNOSTIC STRIP TEST SCH ×4 (06:34→23:35)
[2020-10-15] MEDS: PHENYLEPHRINE 100 MG in DEXT 5% WATER 240 ML IV PRN ×3 (07:18→20:11)
[2020-10-15] MEDS: FUROSEMIDE 40MG/4ML VIAL IVP SCH ×2 (08:19→21:16)
[2020-10-15] MEDS: ZINC SULFATE 220 MG ( 50 ) CAPSULE PO SCH (08:19)
[2020-10-15] MEDS: FOLIC ACID/VITAMIN B COMP W-C TABLET PO SCH (08:19)
[2020-10-15] MEDS: ASCORBIC ACID 500 MG TABLET PO SCH ×2 (08:19→21:16)
[2020-10-15] MEDS: LACTULOSE 20G/30ML UDC PO SCH ×2 (08:19→17:47)
[2020-10-15] MEDS: PETROLATUM,WHITE OPHTH OINT 3.5GM BOTHEYE SCH ×2 (08:19→21:00)
[2020-10-15] MEDS: PANTOPRAZOLE SODIUM 40 MG/VIAL IV SCH ×2 (08:19→17:47)
[2020-10-15] MEDS: DEXT 5%/0.45% NACL 1000ML 1,000 ML IV SCH ×2 (08:21→10:42)
[2020-10-15] MEDS: MIDAZOLAM 100MG/100ML PMX 100 ML IV PRN ×2 (08:21→19:37)
[2020-10-15 09:47] LABS: BG BASE EXCESS -2.7 mmol/L (-2.0-2.0); BG CARBOXYHEMOGLOBIN 1.4 % (0.5-1.5); BG DEOXYHEMOGLOBIN 15.6 % (0.0-5.0); BG FRACTION INSPIRED OXYGEN 100; BG HCO3 ACT 24.6 mmol/L (22.0-26.0); BG METHEMOGLOBIN 0.3 % (0.0-1.5); BG OXYGEN SATURATION 84.1 % (92.0-98.5); BG OXYHEMOGLOBIN 82.7 % (94.0-97.0); BG PCO2 55.4 mmHg (35.0-45.0); BG PH 7.265 (7.350-7.450); BG PO2 55.4 mmHg (75.0-100.0); BG SAMPLE SITE RIGHT RADIAL; BG TOTAL HEMOGLOBIN 9.3 g/dL (12.0-18.0); BG TOTAL RESPIRATORY RATE 40 b/min; BG VENT MODE VENT - P/C
[2020-10-15 09:50] LABS: PHOSPHORUS 5.7 mg/dL (2.5-4.9)
[2020-10-15] MEDS: LEVETIRACETAM 500MG PREMIX 100 ML IV SCH ×2 (09:58→21:16)
[2020-10-15] MEDS: INSULIN GLARGINE UD 100 UNITS/ML SYR SUBCUT SCH (09:59)
[2020-10-15 10:12] LABS: HEMATOCRIT. 27.2 % (36.0-48.0); HEMOGLOBIN. 8.6 g/dL (12.0-16.0); MEAN CORPUSCULAR VOLUME 88.8 fL (81.0-99.0); MEAN PLATELET VOLUME 8.3 fl (7.4-10.4); RED BLOOD CELL COUNT 3.06 mill/uL (4.2-5.4); RED CELL DISTRIBUTION WIDTH 18.2 % (11.6-14.6)
[2020-10-15] MEDS: POLYETHYLENE GLYCOL 3350 (17GM) 1 DOSE PACK PO SCH (10:44)
[2020-10-15] MEDS: ACETAMINOPHEN 650MG/20.3ML UDC PO PRN (12:49)
[2020-10-15] MEDS: CEFEPIME 1,000 MG in DEXTROSE 5% WATER 50 ML IV SCH (18:39)
[2020-10-15 18:51] LABS: NUCLEATED RED BLOOD CELLS 71 /100 WBC
[2020-10-15 18:52] LABS: PLATELET ESTIMATE MARKEDLY DECREASED
[2020-10-15 18:53] LABS: PLATELET 25 x1000/uL (130-400)
[2020-10-16] VITALS (93 sets, daily range): BP systolic 90–133; BP diastolic 21–78
[2020-10-16] MEDS: METHYLPREDNISOLONE SOD SUCC 40 MG/ML VIAL IV SCH ×3 (01:51→18:29)
[2020-10-16] MEDS: PHENYLEPHRINE 100 MG in DEXT 5% WATER 240 ML IV PRN ×4 (02:24→20:09)
[2020-10-16] MEDS: PETROLATUM,WHITE OPHTH OINT 3.5GM BOTHEYE SCH ×3 (02:24→21:04)
[2020-10-16] MEDS: IPRATROPIUM/ALBUTEROL 0.5-3(2.5)MG/3ML NEB HHN SCH ×4 (02:29→21:55)
[2020-10-16] MEDS ORDERED: *PATIENT'S OWN MEDICATION STORAGE XX SCH (02:30)
[2020-10-16] MEDS: FENTANYL CITRATE/PF 2,500 MCG in SODIUM CHLORIDE 0.9% 200 ML IV PRN ×3 (04:40→19:45)
[2020-10-16] MEDS ORDERED: MIDAZOLAM HCL 100 MG in DEXT 5% WATER 80 ML IV PRN (05:00)
[2020-10-16] MEDS: BLOOD SUGAR DIAGNOSTIC STRIP TEST SCH ×4 (05:35→23:21)
[2020-10-16] MEDS: METOCLOPRAMIDE HCL 10MG/2ML VIAL IV SCH ×4 (05:35→23:21)
[2020-10-16] MEDS: INSULIN LISPRO 100 UNITS/ML SUBCUT SCH ×4 (05:35→23:25)
[2020-10-16 05:45] LABS: HEMATOCRIT. 25.7 % (36.0-48.0); MEAN CORPUSCULAR HEMOGLOBIN 27.7 pg (28.0-32.0); MEAN CORPUSCULAR VOLUME 89.2 fL (81.0-99.0); MEAN PLATELET VOLUME 6.5 fl (7.4-10.4); RED BLOOD CELL COUNT 2.88 mill/uL (4.2-5.4); RED CELL DISTRIBUTION WIDTH 18.6 % (11.6-14.6)
[2020-10-16 05:52] LABS: CHLORIDE 102 mEq/L (98-107)
[2020-10-16 05:58] LABS: PHOSPHORUS 7.1 mg/dL (2.5-4.9)
[2020-10-16 06:19] LABS: PLATELET 20 x1000/uL (130-400)
[2020-10-16] MEDS: ZINC SULFATE 220 MG ( 50 ) CAPSULE PO SCH (09:00)
[2020-10-16] MEDS: POLYETHYLENE GLYCOL 3350 (17GM) 1 DOSE PACK PO SCH (09:00)
[2020-10-16] MEDS: FOLIC ACID/VITAMIN B COMP W-C TABLET PO SCH (09:00)
[2020-10-16] MEDS: ASCORBIC ACID 500 MG TABLET PO SCH ×2 (09:00→21:05)
[2020-10-16] MEDS: LACTULOSE 20G/30ML UDC PO SCH ×2 (09:04→18:30)
[2020-10-16] MEDS: PANTOPRAZOLE SODIUM 40 MG/VIAL IV SCH ×2 (09:05→18:29)
[2020-10-16] MEDS: LEVETIRACETAM 500MG PREMIX 100 ML IV SCH ×2 (09:05→21:05)
[2020-10-16] MEDS: FUROSEMIDE 40MG/4ML VIAL IVP SCH ×2 (09:05→21:05)
[2020-10-16] MEDS: INSULIN GLARGINE UD 100 UNITS/ML SYR SUBCUT SCH (10:35)
[2020-10-16 10:44] LABS: BG BASE EXCESS -6.9 mmol/L (-2.0-2.0); BG CARBOXYHEMOGLOBIN 2.1 % (0.5-1.5); BG DEOXYHEMOGLOBIN 22.4 % (0.0-5.0); BG FRACTION INSPIRED OXYGEN 100; BG HCO3 ACT 20.9 mmol/L (22.0-26.0); BG OXYGEN SATURATION 77.1 % (92.0-98.5); BG OXYHEMOGLOBIN 75.5 % (94.0-97.0); BG PCO2 54.4 mmHg (35.0-45.0); BG PH 7.203 (7.350-7.450); BG PO2 46.8 mmHg (75.0-100.0); BG SAMPLE SITE LEFT BRACHIAL; BG TOTAL RESPIRATORY RATE 40 b/min; BG VENT MODE VENT - P/C
[2020-10-16] MEDS: MIDAZOLAM 100MG/100ML PMX 100 ML IV PRN ×2 (11:41→18:37)
[2020-10-16 16:40] LABS: PLATELET ESTIMATE MARKEDLY DECREASED
[2020-10-16 16:43] LABS: NUCLEATED RED BLOOD CELLS 38 /100 WBC
[2020-10-16] MEDS: CEFEPIME 1,000 MG in DEXTROSE 5% WATER 50 ML IV SCH (18:30)
[2020-10-16] MEDS: MICAFUNGIN 150 MG in SODIUM CHLORIDE 0.9% 100 ML IV SCH (22:36)
[2020-10-16] MEDS: DEXT 5%/0.45% NACL 1000ML 1,000 ML IV SCH (22:43)
[2020-10-17] VITALS (92 sets, daily range): BP systolic 95–150; BP diastolic 31–94
[2020-10-17] MEDS: METHYLPREDNISOLONE SOD SUCC 40 MG/ML VIAL IV SCH ×3 (01:42→18:25)
[2020-10-17] MEDS: FENTANYL CITRATE/PF 2,500 MCG in SODIUM CHLORIDE 0.9% 200 ML IV PRN ×3 (01:57→17:49)
[2020-10-17] MEDS: PHENYLEPHRINE 100 MG in DEXT 5% WATER 240 ML IV PRN ×3 (01:57→17:48)
[2020-10-17] MEDS: MIDAZOLAM 100MG/100ML PMX 100 ML IV PRN ×4 (02:02→21:39)
[2020-10-17] MEDS: IPRATROPIUM/ALBUTEROL 0.5-3(2.5)MG/3ML NEB HHN SCH ×5 (03:14→20:37)
[2020-10-17 05:11] LABS: HEMATOCRIT. 26.6 % (36.0-48.0); HEMOGLOBIN. 8.3 g/dL (12.0-16.0); MEAN CORPUSCULAR HEMOGLOBIN 27.8 pg (28.0-32.0); MEAN PLATELET VOLUME 8.6 fl (7.4-10.4); RED BLOOD CELL COUNT 2.99 mill/uL (4.2-5.4); RED CELL DISTRIBUTION WIDTH 19.1 % (11.6-14.6)
[2020-10-17] MEDS: METOCLOPRAMIDE HCL 10MG/2ML VIAL IV SCH ×3 (05:29→18:25)
[2020-10-17] MEDS: INSULIN LISPRO 100 UNITS/ML SUBCUT SCH ×3 (05:29→18:26)
[2020-10-17] MEDS: BLOOD SUGAR DIAGNOSTIC STRIP TEST SCH ×3 (05:29→18:26)
[2020-10-17 05:30] LABS: CHLORIDE 101 mEq/L (98-107)
[2020-10-17 05:41] LABS: PHOSPHORUS 7.4 mg/dL (2.5-4.9)
[2020-10-17 05:44] LABS: PLATELET 20 x1000/uL (130-400)
[2020-10-17] MEDS: ASCORBIC ACID 500 MG TABLET PO SCH ×2 (08:48→21:25)
[2020-10-17] MEDS: LACTULOSE 20G/30ML UDC PO SCH ×2 (08:48→18:26)
[2020-10-17] MEDS: PANTOPRAZOLE SODIUM 40 MG/VIAL IV SCH ×2 (08:48→18:25)
[2020-10-17] MEDS: FOLIC ACID/VITAMIN B COMP W-C TABLET PO SCH (08:48)
[2020-10-17] MEDS: FUROSEMIDE 40MG/4ML VIAL IVP SCH ×2 (08:48→21:25)
[2020-10-17] MEDS: ERGOCALCIFEROL 50000UNITS CAPSULE PO SCH (08:48)
[2020-10-17] MEDS: POLYETHYLENE GLYCOL 3350 (17GM) 1 DOSE PACK PO SCH (08:49)
[2020-10-17] MEDS: ZINC SULFATE 220 MG ( 50 ) CAPSULE PO SCH (11:05)
[2020-10-17] MEDS: PETROLATUM,WHITE OPHTH OINT 3.5GM BOTHEYE SCH ×2 (11:05→21:27)
[2020-10-17] MEDS: INSULIN GLARGINE UD 100 UNITS/ML SYR SUBCUT SCH (11:06)
[2020-10-17] MEDS: LEVETIRACETAM 500MG PREMIX 100 ML IV SCH ×2 (12:14→21:26)
[2020-10-17 12:24] LABS: BG BASE EXCESS -6.6 mmol/L (-2.0-2.0); BG CARBOXYHEMOGLOBIN 0.5 % (0.5-1.5); BG DEOXYHEMOGLOBIN 24.7 % (0.0-5.0); BG FRACTION INSPIRED OXYGEN 100; BG HCO3 ACT 22.1 mmol/L (22.0-26.0); BG METHEMOGLOBIN 0.6 % (0.0-1.5); BG OXYHEMOGLOBIN 74.2 % (94.0-97.0); BG PCO2 62.4 mmHg (35.0-45.0); BG PH 7.168 (7.350-7.450); BG PO2 49.2 mmHg (75.0-100.0); BG SAMPLE SITE RIGHT RADIAL; BG TOTAL HEMOGLOBIN 9.6 g/dL (12.0-18.0); BG TOTAL RESPIRATORY RATE 40 b/min; BG VENT MODE VENT - P/C
[2020-10-17 12:49] LABS: NUCLEATED RED BLOOD CELLS 41 /100 WBC
[2020-10-17 12:50] LABS: PLATELET ESTIMATE DECREAS
[2020-10-17] MEDS: CEFEPIME 1,000 MG in DEXTROSE 5% WATER 50 ML IV SCH (17:49)
[2020-10-17] MEDS: MICAFUNGIN 150 MG in SODIUM CHLORIDE 0.9% 100 ML IV SCH (21:26)
[2020-10-18] VITALS (96 sets, daily range): BP systolic 85–147; BP diastolic 14–63
[2020-10-18] MEDS: METOCLOPRAMIDE HCL 10MG/2ML VIAL IV SCH ×5 (00:55→23:02)
[2020-10-18] MEDS: BLOOD SUGAR DIAGNOSTIC STRIP TEST SCH ×5 (00:55→23:02)
[2020-10-18] MEDS: INSULIN LISPRO 100 UNITS/ML SUBCUT SCH ×5 (00:56→23:02)
[2020-10-18] MEDS: METHYLPREDNISOLONE SOD SUCC 40 MG/ML VIAL IV SCH ×3 (01:00→17:05)
[2020-10-18] MEDS: FENTANYL CITRATE/PF 2,500 MCG in SODIUM CHLORIDE 0.9% 200 ML IV PRN ×2 (02:12→17:14)
[2020-10-18] MEDS: IPRATROPIUM/ALBUTEROL 0.5-3(2.5)MG/3ML NEB HHN SCH ×5 (02:23→22:34)
[2020-10-18 05:55] LABS: CHLORIDE 101 mEq/L (98-107)
[2020-10-18 05:56] LABS: HEMATOCRIT. 23.9 % (36.0-48.0); HEMOGLOBIN. 7.5 g/dL (12.0-16.0); MEAN CORPUSCULAR HEMOGLOBIN 27.8 pg (28.0-32.0); MEAN CORPUSCULAR VOLUME 89.3 fL (81.0-99.0); MEAN PLATELET VOLUME 8.2 fl (7.4-10.4); RED BLOOD CELL COUNT 2.68 mill/uL (4.2-5.4)
[2020-10-18 06:23] LABS: PHOSPHORUS 8.4 mg/dL (2.5-4.9)
[2020-10-18] MEDS: MIDAZOLAM 100MG/100ML PMX 100 ML IV PRN ×2 (06:30→22:37)
[2020-10-18 06:56] LABS: PLATELET 10 x1000/uL (130-400)
[2020-10-18] MEDS: FOLIC ACID/VITAMIN B COMP W-C TABLET PO SCH (08:00)
[2020-10-18] MEDS: PANTOPRAZOLE SODIUM 40 MG/VIAL IV SCH ×2 (08:00→17:03)
[2020-10-18] MEDS: ZINC SULFATE 220 MG ( 50 ) CAPSULE PO SCH (08:00)
[2020-10-18] MEDS: LACTULOSE 20G/30ML UDC PO SCH ×2 (08:00→17:03)
[2020-10-18] MEDS: POLYETHYLENE GLYCOL 3350 (17GM) 1 DOSE PACK PO SCH (08:00)
[2020-10-18] MEDS: ASCORBIC ACID 500 MG TABLET PO SCH (08:00)
[2020-10-18] MEDS: PETROLATUM,WHITE OPHTH OINT 3.5GM BOTHEYE SCH ×2 (08:01→20:26)
[2020-10-18] MEDS: DEXT 5%/0.45% NACL 1000ML 1,000 ML IV SCH (09:11)
[2020-10-18] MEDS: LEVETIRACETAM 500MG PREMIX 100 ML IV SCH ×2 (09:11→21:13)
[2020-10-18] MEDS: INSULIN GLARGINE UD 100 UNITS/ML SYR SUBCUT SCH (09:12)
[2020-10-18] MEDS: FUROSEMIDE 40MG/4ML VIAL IVP SCH ×2 (09:16→20:15)
[2020-10-18 09:50] LABS: BG BASE EXCESS -9.1 mmol/L (-2.0-2.0); BG CARBOXYHEMOGLOBIN 1.4 % (0.5-1.5); BG DEOXYHEMOGLOBIN 28.3 % (0.0-5.0); BG FRACTION INSPIRED OXYGEN 100; BG HCO3 ACT 19.1 mmol/L (22.0-26.0); BG OXYGEN SATURATION 71.3 % (92.0-98.5); BG OXYHEMOGLOBIN 70.3 % (94.0-97.0); BG PCO2 54.7 mmHg (35.0-45.0); BG PH 7.162 (7.350-7.450); BG PO2 46.6 mmHg (75.0-100.0); BG SAMPLE SITE RIGHT RADIAL; BG TOTAL RESPIRATORY RATE 40 b/min; BG VENT MODE VENT - AC
[2020-10-18 10:54] LABS: NUCLEATED RED BLOOD CELLS 61 /100 WBC
[2020-10-18 10:55] LABS: PLATELET ESTIMATE MARKEDLY DECREASED
[2020-10-18] MEDS: PHENYLEPHRINE 100 MG in DEXT 5% WATER 240 ML IV PRN ×2 (11:43→21:12)
[2020-10-18 13:05] LABS: CREATINE KINASE 3938 IU/L (26-192)
[2020-10-18] MEDS: CEFEPIME 1,000 MG in DEXTROSE 5% WATER 50 ML IV SCH (17:29)
[2020-10-18] MEDS: MICAFUNGIN 150 MG in SODIUM CHLORIDE 0.9% 100 ML IV SCH (21:12)
[2020-10-18] MEDS ORDERED: SODIUM POLYSTYRENE SULFONATE 15 G/60 ML BOT PO NR (23:30)
[2020-10-19] VITALS (21 sets, daily range): BP systolic 45–188; BP diastolic 14–103
[2020-10-19] MEDS: METHYLPREDNISOLONE SOD SUCC 40 MG/ML VIAL IV SCH ×2 (01:18→08:44)
[2020-10-19] MEDS: VASOPRESSIN 20 UNIT in SODIUM CHLORIDE 0.9% 99 ML IV PRN ×2 (02:52→09:10)
[2020-10-19] MEDS: FENTANYL CITRATE/PF 2,500 MCG in SODIUM CHLORIDE 0.9% 200 ML IV PRN ×2 (02:52→12:26)
[2020-10-19] MEDS: PHENYLEPHRINE 100 MG in DEXT 5% WATER 240 ML IV PRN ×4 (02:53→12:27)
[2020-10-19] MEDS: IPRATROPIUM/ALBUTEROL 0.5-3(2.5)MG/3ML NEB HHN SCH ×3 (03:37→12:09)
[2020-10-19] MEDS: NOREPINEPHRINE 32 MG in DEXT 5% WATER 218 ML IV PRN ×2 (05:00→12:26)
[2020-10-19] MEDS: BLOOD SUGAR DIAGNOSTIC STRIP TEST SCH ×2 (05:16→11:37)
[2020-10-19] MEDS: INSULIN LISPRO 100 UNITS/ML SUBCUT SCH ×2 (05:21→11:37)
[2020-10-19] MEDS: METOCLOPRAMIDE HCL 10MG/2ML VIAL IV SCH ×2 (05:22→11:37)
[2020-10-19 06:03] LABS: HEMATOCRIT. 23.5 % (36.0-48.0); MEAN CORPUSCULAR VOLUME 91.9 fL (81.0-99.0); RED BLOOD CELL COUNT 2.56 mill/uL (4.2-5.4); RED CELL DISTRIBUTION WIDTH 19.7 % (11.6-14.6)
[2020-10-19 06:27] LABS: HEMOGLOBIN. 6.9 g/dL (12.0-16.0)
[2020-10-19] MEDS: PETROLATUM,WHITE OPHTH OINT 3.5GM BOTHEYE SCH (08:43)
[2020-10-19] MEDS: PANTOPRAZOLE SODIUM 40 MG/VIAL IV SCH (08:44)
[2020-10-19] MEDS: FUROSEMIDE 40MG/4ML VIAL IVP SCH (08:44)
[2020-10-19] MEDS: LACTULOSE 20G/30ML UDC PO SCH (08:44)
[2020-10-19] MEDS: POLYETHYLENE GLYCOL 3350 (17GM) 1 DOSE PACK PO SCH (08:44)
[2020-10-19] MEDS: LEVETIRACETAM 500MG PREMIX 100 ML IV SCH (08:45)
[2020-10-19] MEDS: MIDAZOLAM 100MG/100ML PMX 100 ML IV PRN (08:55)
[2020-10-19] MEDS ORDERED: SODIUM POLYSTYRENE SULFONATE 15 G/60 ML BOT PO SCH (09:00)
[2020-10-19] MEDS ORDERED: SORBITOL 70% SOLN 30ML PO SCH (09:00)
[2020-10-19 11:01] LABS: NUCLEATED RED BLOOD CELLS 68 /100 WBC
[2020-10-19 11:02] LABS: PLATELET ESTIMATE MARKEDLY DECREASED
[2020-10-19 11:04] LABS: PLATELET 25 x1000/uL (130-400)
[2020-10-19] MEDS: FOLIC ACID/VITAMIN B COMP W-C TABLET PO SCH (11:36)
[2020-10-19] MEDS: INSULIN GLARGINE UD 100 UNITS/ML SYR SUBCUT SCH (12:25)
== END 2020-10-19 13:51 | disposition expired | DRG 720 ==
LOC: ER 08:53 → MICUSO 10:03 → 7EST 09-22 13:16 → MICUSO 09-25 10:31 → MICUNO 10-08 10:00 → MICUSO 10-15 11:36 → 3WST 10-18 13:30 → CVICU 10-18 21:22
PROVIDERS: ADMIT Internal Medicine; ATTEND Internal Medicine
PROC: 5A09557 Assistance with Respiratory Ventilation, Greater than 96 Consecutive Hours, Continuous Positive Airway Pressure (ICD-10-PCS; 2020-09-19)
PROC: 5A1955Z Respiratory Ventilation, Greater than 96 Consecutive Hours (ICD-10-PCS; principal; 2020-09-25)
PROC: 05HY33Z Insertion of Infusion Device into Upper Vein, Percutaneous Approach (ICD-10-PCS; 2020-09-25)
PROC: B54MZZA Ultrasonography of Right Upper Extremity Veins, Guidance (ICD-10-PCS; 2020-09-25)
PROC: 0BH17EZ Insertion of Endotracheal Airway into Trachea, Via Natural or Artificial Opening (ICD-10-PCS; 2020-09-25)
PROC: 5A1D70Z Performance of Urinary Filtration, Intermittent, Less than 6 Hours Per Day (ICD-10-PCS; 2020-09-26)
PROC: 02HV33Z Insertion of Infusion Device into Superior Vena Cava, Percutaneous Approach (ICD-10-PCS; 2020-09-27)
PROC: B548ZZA Ultrasonography of Superior Vena Cava, Guidance (ICD-10-PCS; 2020-09-27)
PROC: 5A1D70Z Performance of Urinary Filtration, Intermittent, Less than 6 Hours Per Day (ICD-10-PCS; 2020-09-28)
PROC: 5A1D70Z Performance of Urinary Filtration, Intermittent, Less than 6 Hours Per Day (ICD-10-PCS; 2020-09-30)
PROC: 5A1D70Z Performance of Urinary Filtration, Intermittent, Less than 6 Hours Per Day (ICD-10-PCS; 2020-10-04)
PROC: 5A1D70Z Performance of Urinary Filtration, Intermittent, Less than 6 Hours Per Day (ICD-10-PCS; 2020-10-06)
PROC: 30233N1 Transfusion of Nonautologous Red Blood Cells into Peripheral Vein, Percutaneous Approach (ICD-10-PCS; 2020-10-13)
PROC: 5A1D70Z Performance of Urinary Filtration, Intermittent, Less than 6 Hours Per Day (ICD-10-PCS; 2020-10-13)
PROC: 5A1D70Z Performance of Urinary Filtration, Intermittent, Less than 6 Hours Per Day (ICD-10-PCS; 2020-10-14)
PROC: 30233R1 Transfusion of Nonautologous Platelets into Peripheral Vein, Percutaneous Approach (ICD-10-PCS; 2020-10-15)
PROC: 5A1D70Z Performance of Urinary Filtration, Intermittent, Less than 6 Hours Per Day (ICD-10-PCS; 2020-10-16)
PROC: 5A1D80Z Performance of Urinary Filtration, Prolonged Intermittent, 6-18 hours Per Day (ICD-10-PCS; 2020-10-18)
DX: A41.89 Other specified sepsis (principal); U07.1 COVID-19; J96.01 Acute respiratory failure with hypoxia; J12.82 Pneumonia due to coronavirus disease 2019; E87.2 Acidosis; N17.9 Acute kidney failure, unspecified; R74.01 Elevation of levels of liver transaminase levels; E66.01 Morbid (severe) obesity due to excess calories; E87.5 Hyperkalemia; K80.20 Calculus of gallbladder without cholecystitis without obstruction; E78.5 Hyperlipidemia, unspecified; K57.90 Diverticulosis of intestine, part unspecified, without perforation or abscess without bleeding; K76.0 Fatty (change of) liver, not elsewhere classified; G93.40 Encephalopathy, unspecified; D69.6 Thrombocytopenia, unspecified; Z66 Do not resuscitate; B19.20 Unspecified viral hepatitis C without hepatic coma; D62 Acute posthemorrhagic anemia; D63.8 Anemia in other chronic diseases classified elsewhere; D75.89 Other specified diseases of blood and blood-forming organs; E11.649 Type 2 diabetes mellitus with hypoglycemia without coma; E43 Unspecified severe protein-calorie malnutrition; E83.39 Other disorders of phosphorus metabolism; E86.9 Volume depletion, unspecified; E87.0 Hyperosmolality and hypernatremia; I61.9 Nontraumatic intracerebral hemorrhage, unspecified; I63.9 Cerebral infarction, unspecified; K56.7 Ileus, unspecified; R13.12 Dysphagia, oropharyngeal phase; G81.94 Hemiplegia, unspecified affecting left nondominant side; R65.21 Severe sepsis with septic shock; Z51.5 Encounter for palliative care; I13.0 Hypertensive heart and chronic kidney disease with heart failure and stage 1 through stage 4 chronic kidney disease, or unspecified chronic kidney disease; N18.9 Chronic kidney disease, unspecified; E11.22 Type 2 diabetes mellitus with diabetic chronic kidney disease; Z90.49 Acquired absence of other specified parts of digestive tract; Z79.82 Long term (current) use of aspirin; Z79.899 Other long term (current) drug therapy; Z86.73 Personal history of transient ischemic attack (TIA), and cerebral infarction without residual deficits; Z78.1 Physical restraint status; Z79.4 Long term (current) use of insulin; Z90.710 Acquired absence of both cervix and uterus; Z99.11 Dependence on respirator [ventilator] status; R00.0 Tachycardia, unspecified; Z68.41 Body mass index [BMI] 40.0-44.9, adult
CPT/HCPCS: 36415; 36556; 36600; 71045; 74018; 74176; 76700; 76937; 80048; 80053; 80061; 80076; 82140; 82270; 82375; 82542; 82550; 82607; 82728; 82746; 82805; 82962; 83010; 83036; 83540; 83550; 83605; 83615; 83735; 83880; 84100; 84132; 84145; 84439; 84443; 84478; 84481; 84484; 85014; 85018; 85025; 85044; 85049; 85379; 85384; 86022; 86140; 86705; 86709; 86803; 86850; 86880; 86900; 86920; 86945; 87070; 87077; 87106; 87340; 87426; 93005; 93880; 94003; 94640; 94660; 99291; A6261; C1725; C1752; C1769; C1893; C9113; C9803; J0456; J0692; J1100; J1265; J1650; J1815; J1940; J1953; J2060; J2248; J2250; J2270; J2370; J2405; J2543; J2704; J2765; J2920; J3010; J3370; J3475; J3480; J3490; J7030; J7040; J7050; J7060; J7070; P9016; P9034; U0003; A4315